=== PATIENT | female | born 1945 | race Caucasian/White ===

== ENCOUNTER → 2016-11-13 | Outpatient (CLI) | payer MEDICARE, OTHER ==
[~2016-11-13] MED LIST: AMLO5TAB2 PO; ASPI81TA85 PO; ATOR1TAB18 PO; GLIP10TA6 PO; JANU100T PO; LIDOCAINE 1% MDV 20ML VIAL As Ordered ONE; LISI40TAB PO; LOPR1TAB7 PO; VITA-122 PO
--- NOTE | 2016-11-13 09:52 | REP ---
PA chest x-ray: Single view. History: The patient is immediately status post CT guided needle biopsy of right perihilar mass. Comparison chest x-ray is from September 26, 2016. Findings: The large cavitary process in the right upper lobe and the associated infiltrate have improved. Mass persists in the right perihilar region. There is no evidence of pneumothorax or hydrothorax. Left lung remains clear. Impression: No complication identified. Signed by Monroe Agee MD 11/13/2016 08:07 P
--- NOTE | 2016-11-13 16:16 | REP ---
CT GUIDED RIGHT UPPER LOBE LUNG BIOPSY: The procedure was performed under the direct supervision of Dr. Agee. The patient has a history of a 6.5 x 5.2 cm necrotizing mass/cavitary lesion in the right upper lobe seen on a previous CAT scan from [facility] performed on 09/27/2016. The risks and benefits of the procedure were explained to the patient and informed consent was obtained. The right upper lobe lung mass was localized using CT guidance. The skin was prepped and draped in a sterile fashion. 1% Lidocaine was used as a local anesthetic. Using CT guidance a 19/20 coaxial needle biopsy system was inserted and advanced into the mass. 4 core biopsy samples were obtained and sent to the lab. The patient tolerated the procedure well and there were no immediate complications. After the appropriate amount of monitored convalescence the patient was discharged from the department. Reviewed by FELIZ Sanches 11/13/2016 04:56 PEdited and Signed by Monroe Agee MD 11/13/2016 05:29 P
== END ==
LOC: M RADPRO 08:33
PROVIDERS: ATTEND Internal Medicine
DX: R91.1 Solitary pulmonary nodule (principal); I10 Essential (primary) hypertension; R01.1 Cardiac murmur, unspecified; J44.9 Chronic obstructive pulmonary disease, unspecified; G47.30 Sleep apnea, unspecified; Z79.84 Long term (current) use of oral hypoglycemic drugs; Z79.899 Other long term (current) drug therapy

== ENCOUNTER → 2016-12-10 | Outpatient (CLI) | payer MEDICARE, OTHER ==
[~2016-12-10] MED LIST changes: -LIDOCAINE 1% MDV 20ML VIAL As Ordered ONE
--- NOTE | 2016-12-10 17:20 | REP ---
MRI BRAIN WITHOUT AND WITH CONTRAST: HISTORY: Lung cancer. CONTRAST: ProHance 16.8 mL. Areas of increased signal intensity on T2 weighted images are present in the periventricular and subcortical white matter and karlos. This represents small vessel ischemic disease. There is no intraparenchymal hemorrhage, infarct, mass, or midline shift. There is no abnormal enhancement. The ventricular system and cortical sulci are dilated consistent with mild volume loss. There is no extracerebral collection. The sinuses are clear. IMPRESSION: 1. Small vessel ischemic disease. 2. Mild volume loss. Signed by Tadeo Alves MD 12/11/2016 08:01 A
== END ==
LOC: M RAD 13:00
PROVIDERS: ATTEND Internal Medicine Medical Oncology
DX: C34.90 Malignant neoplasm of unspecified part of unspecified bronchus or lung (principal)
CPT/HCPCS: 70553; A9576

== ENCOUNTER → 2016-12-11 | Outpatient (CLI) | payer MEDICARE, OTHER ==
--- NOTE | 2016-12-11 20:14 | REP ---
Whole body PET / CT scan for staging of non-small cell lung carcinoma: This the the patient had a right lung mass identified on a chest CT dated 09/18/2060. The patient underwent CT-guided needle biopsy of this mass on November 13, 2016. On the PET/CT scan today scanning is performed from skull base to the upper thighs. Neck and supraclavicular areas: There is focal asymmetric hypermetabolic uptake in the left adenoid with the standard uptake value measuring 4.9. There is bilaterally symmetric artifactual uptake in the arytenoids. There is artifactual uptake in the tongue. Chest: There is multifocal confluent hypermetabolic uptake in the patient's known right lung mass, the standard uptake value maximally measuring 6.8. There are no other hypermetabolic foci in the lung elkins. There is a small focus of hypermetabolic uptake in the posterior mediastinum immediately anterior to the azygos vein. This could be in the esophagus or could bin a para esophageal lymph node. The standard uptake value is 6.1. There are calcified mediastinal and right hilar nodes. There are no other hypermetabolic foci in the chest. Abdomen, pelvis and upper thighs: There is a hypermetabolic focus in the posterior wall of the gastric antrum with the standard uptake value measuring 5.5. This could be artifact from peristalsis or could represent a metastatic focus. There is a hypermetabolic focus in the soft tissues superior to the left hip greater trochanter, nonspecific, trochanteric bursitis versus metastasis. There are no other hypermetabolic foci in the in the abdomen, pelvis or upper thighs. Impression: There is focal hypermetabolic uptake in the left adenoid. The patients known right lung mass demonstrates confluent multifocal hypermetabolic uptake. There is hypermetabolic uptake in the posterior mediastinal node versus uptake in the esophagus. There is hypermetabolic uptake in the posterior wall of the gastric antrum, nonspecific, peristalsis artifact versus metastasis. There is a hypermetabolic focus in the soft tissues superior to the left hip greater trochanter, nonspecific, bursitis versus metastasis. The study is performed with 820 mCi of F 18 FDG Signed by Enrico Reyes MD 12/11/2016 08:06 P
== END ==
LOC: M RAD 09:25
PROVIDERS: ATTEND Internal Medicine Medical Oncology
DX: C34.11 Malignant neoplasm of upper lobe, right bronchus or lung (principal); R93.8 Abnormal findings on diagnostic imaging of other specified body structures
CPT/HCPCS: 78815; A9552

== ENCOUNTER → 2016-12-19 | Outpatient (CLI) | payer MEDICARE, OTHER ==
--- NOTE | 2016-12-23 06:34 | RADONC ---
RADIATION ONCOLOGY CONSULTATION NOTE DATE: 12/19/2016 CHART NUMBER: [id number] DIAGNOSIS: Right lung cancer. STAGE: IIIA, [id number]. ECOG PERFORMANCE: 1 CONSULTATION NOTE: Ms. 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 HISTORY OF PRESENT ILLNESS: The patient was in her usual state of health until screening chest x-ray done 09/18/2016 showed a 5 cm opacity in the right upper lobe. Subsequent CT scan done on 09/18/2016 revealed a large heterogeneous mass in the right upper lobe measuring 4.5 cm with a direct extension into both the chest wall and the hilar area along with associated adenopathy. A biopsy was undertaken on 11/13/2016 and pathology revealed a moderately differentiated adenocarcinoma. A PET CT was done on 12/11/2014 and revealed multifocal hypermetabolic uptake in her known right upper lobe mass. The uptake in the primary site had a SUV value of 6.8. There was also thought to be a lymph node in the paraesophageal area with SUV value of 6.1. There was some hypermetabolic uptake in the wall of the gastric antrum of unknown significance. There is also some hypermetabolic uptake in the soft tissue superior to the left hip, again of unknown significance. There is a question of some left adenoid issue as well. The patient was referred to the ENT surgeons who reviewed the PET scan and decided there is no indication for biopsy and they think this is normal uptake. She is now being referred to us for discussion of external beam radiation therapy. PAST MEDICAL HISTORY: The patient's past medical history is positive for hypertension, diabetes, hyperlipidemia, carpal tunnel syndrome with surgery and a vitamin D deficiency. ALLERGIES: The patient has no known drug allergies. SOCIAL HISTORY: The patient had smoked one pack of cigarettes per day for 50 years. She quit in 2012. She does not abuse alcohol. FAMILY HISTORY: The patient's family history is positive for a sister with ovarian cancer and a brother with leukemia. REVIEW OF SYSTEMS: The patient's review of systems is positive for some foot pain and weakness in her lower legs. It is otherwise noncontributory. Denies nausea, vomiting, fevers, chills, night sweats, diplopia, headaches, anxiety or depression, anorexia, weight loss, visual disturbances, chest pain, urinary or bowel difficulties, bone pain, or neurological problems. PHYSICAL EXAMINATION: The patient is a well-developed, well-nourished, 71-year-old female, in no acute distress. HEENT exam is normocephalic, atraumatic. Extraocular movements are intact. There is no palpable cervical, supraclavicular, infraclavicular, axillary, or inguinal lymphadenopathy present. Lungs are clear to auscultation and percussion. Heart has a regular rate and rhythm. Abdomen is benign with no hepatosplenomegaly, masses, or tenderness. Skeletal examination reveals no tenderness to pressure or percussion of the bony skeleton. Extremities reveal no clubbing, cyanosis, or edema. Neurologic exam is grossly intact, as is the remainder of the physical examination. 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 There is no definitive evidence of metastatic disease and therefore, the patient may be a candidate for external beam radiation. The patient is not oxygen-dependent and does not report getting short of breath walking up stairs. She may therefore be able to handle this treatment. I have ordered pulmonary functions to be undertaken as well as a differential lung scan. In addition, I have set her up for discussion on our multidisciplinary tumor conference on Friday. Pending the results of her breathing capacity and differential lung scan, final recommendations will be made as to whether or not she could tolerate radiation. I have set her up to see me again for re-consultation following the pulmonary functions, differential lung scan and tumor conference. Final recommendations will be made at that time. Thank you for allowing us to participate in the care of this very pleasant woman. If I could be of any further assistance or provide you with any information, please free to contact me anytime. cc: MD Savi Ragland MD
== END ==
LOC: M ONCR 10:10
PROVIDERS: ATTEND Radiology Radiation Oncology
DX: C34.91 Malignant neoplasm of unspecified part of right bronchus or lung (principal)

== ENCOUNTER → 2016-12-20 | Outpatient (CLI) | payer MEDICARE, OTHER ==
--- NOTE | 2016-12-20 10:05 | REP ---
CHEST X-RAY PA AND LATERAL: 12/20/2016. Comparison: 11/13/2016 chest x-ray, CT angiogram 09/18/2016. Clinical history: Lung carcinoma. Findings: Two views show large mass in the right upper lobe abutting the anterior margin of the major fissure extending from the hilum toward the periphery, has at least a 5.8 cm vertical diameter, unchanged. There are no new masses, pleural effusion or infiltrates. The left lung remains clear. The heart is not enlarged. The aorta is calcified at the arch, mildly tortuous but without aneurysm. There are stable calcified mediastinal nodes right paratracheal region. Bony thorax shows no compression deformity or focal lesion. No free air under the diaphragm. Impression: 1. A large right upper lobe mass anterior to the major fissure and extending towards the hilum and periphery of the right upper lobe. No change in size from the October x-ray. No pleural effusion, acute infiltrate or other acute finding. Signed by Dhruv Del Castillo MD 12/20/2016 04:40 P
--- NOTE | 2016-12-20 10:55 | REP ---
VENTILATION-PERFUSION DIFFERENTIAL FUNCTION LUNG SCAN: 12/20/2016. Clinical history: Carcinoma, right upper lobe mass. Dyspnea, prior smoker. Technique: The patient received 1 mCi technetium 99m MAA via an IV for perfusion and 2 mCi technetium nine DTPA aerosol for ventilation. Findings. The anterior and posterior projections for both ventilation and perfusion are provided. Findings: The geometric mean for perfusion is as follows: (% ratios) LEFT RIGHT Upper 12.96 4.04 Middle 32.24 13.14 Lower 16.78 20.84 TOTAL 61.98 38.02 The geometric mean for ventilation is as follows: (% ratio) LEFT RIGHT Upper 19.16 7.33 Middle 34.18 18.09 Lower 9.42 11.82 TOTAL 62.76 37.24 Impression: 1. Perfusion and ventilation confirms poor perfusion and the right upper lobe where the large mass is present. See details above. Signed by Dhruv Del Castillo MD 12/20/2016 10:47 A
== END ==
LOC: M RAD 09:21
PROVIDERS: ATTEND Radiology Radiation Oncology
DX: C34.11 Malignant neoplasm of upper lobe, right bronchus or lung (principal)
CPT/HCPCS: 71020; 78598; A9540; A9567

== ENCOUNTER → 2016-12-23 | Outpatient (CLI) | payer MEDICARE, OTHER | LOC: M CARPUL 12:55 | PROVIDERS: ATTEND Radiology Radiation Oncology | DX: C34.90 Malignant neoplasm of unspecified part of unspecified bronchus or lung (principal) ==

== ENCOUNTER → 2016-12-26 | Outpatient (CLI) | payer MEDICARE, OTHER ==
--- NOTE | 2016-12-30 12:08 | RADONC ---
RADIATION ONCOLOGY FOLLOWUP NOTE DATE: 12/26/2016 CHART NUMBER: [id number]. DIAGNOSIS: Right lung cancer. STAGE: Stage is IIIA, [id number]. ECOG PERFORMANCE STATUS: 1. FOLLOWUP NOTE: Ms. 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 Since I saw her, we have obtained a differential lung scan, which shows the perfusion divided at 62% to the left and 38% to the right. The ventilation shows 63% to the left and 37% to the right. Pulmonary functions were done and show an FEV-1 of 1.66 and a diffusion capacity of 86% of predicted. The patient is presenting today reporting she continues to do well. She has no new complaints. The patient's review of systems is positive for some weakness in her lower legs but is otherwise noncontributory. REVIEW OF SYSTEMS: The patient's review of systems is noncontributory. Denies nausea, vomiting, fevers, chills, night sweats, diplopia, headaches, anxiety or depression, anorexia, weight loss, visual disturbances, chest pain, urinary or bowel difficulties, bone pain, or neurological problems. PHYSICAL EXAMINATION: The patient is a well-developed, well-nourished, 71-year-old female, in no acute distress. HEENT exam is normocephalic, atraumatic. Extraocular movements are intact. There is no palpable cervical, supraclavicular, infraclavicular, axillary, or inguinal lymphadenopathy present. Lungs are clear to auscultation and percussion. Heart has a regular rate and rhythm. Abdomen is benign with no hepatosplenomegaly, masses, or tenderness. Skeletal examination reveals no tenderness to pressure or percussion of the bony skeleton. Extremities reveal no clubbing, cyanosis, or edema. Neurologic exam is grossly intact, as is the remainder of the physical examination. ASSESSMENT: I have spent well over 30 minutes with the patient and her family reviewing the PET scan images as well as discussing her overall pulmonary functions and differential lung scan. At this point with the present studies, it appears that we may be able to treat this woman and she may be able to tolerate the treatment. Again, this is not yet fully defined. I have recommended to her that we continue on to the CT treatment planning process. I explained to them in detail the generation of a dose volume histogram, which then can be put together with the differential lung scan and overall pulmonary functions to calculate out roughly whether or not she can tolerate these treatments. The patient is aware that without radiation this tumor will only progress and indeed she will be in big trouble. The patient is scheduled to return to us next week for initiation of treatment planning. Once again, we await the final overall combination of treatment planning with her pulmonary functions to make final recommendations. cc: MD Savi Ragland MD
== END ==
LOC: M ONCR 14:45
PROVIDERS: ATTEND Radiology Radiation Oncology
DX: C34.90 Malignant neoplasm of unspecified part of unspecified bronchus or lung (principal)

== ENCOUNTER → 2016-12-27 | Outpatient (REF) | payer MEDICARE, OTHER | LOC: M LAB REF 09:00 | PROVIDERS: ATTEND Pathology Anatomic Pathology & Clinical Pathology | DX: C34.90 Malignant neoplasm of unspecified part of unspecified bronchus or lung (principal) ==

== ENCOUNTER 2016-12-31 08:30 | Outpatient (RCR) | payer MEDICARE, OTHER | END 2017-01-24 | LOC: M ONCR 08:30 | PROVIDERS: ATTEND Radiology Radiation Oncology | DX: C34.11 Malignant neoplasm of upper lobe, right bronchus or lung (principal) ==

== ENCOUNTER → 2016-12-31 | Outpatient (CLI) | payer MEDICARE, OTHER | LOC: M RAD 08:26 | PROVIDERS: ATTEND Radiology Radiation Oncology | DX: C34.90 Malignant neoplasm of unspecified part of unspecified bronchus or lung (principal) ==

== ENCOUNTER → 2017-01-16 | Outpatient (CLI) | payer MEDICARE, OTHER ==
[2017-01-16 11:48] LABS: INR 1.09
== END ==
LOC: M LAB 11:04
PROVIDERS: ATTEND Internal Medicine
DX: C34.90 Malignant neoplasm of unspecified part of unspecified bronchus or lung (principal); Z79.899 Other long term (current) drug therapy

== ENCOUNTER → 2017-01-16 | Outpatient (CLI) | payer MEDICARE, OTHER ==
[~2017-01-16] MED LIST changes: +LIDOCAINE 2% MDV 20 ML VIAL As Ordered ONE; +LIDOCAINE W/EPINEPHRINE 1% 20ML VIAL As Ordered ONE; +SODIUM BICARBONATE 8.4% INJ 50MEQ 50 ML VIAL As Ordered ONE; +ceFAZolin 1GM INJ (J0690) As Ordered ONE; +fentaNYL 100 MCG/2 ML INJECTION (J3010) As Ordered ONE
--- NOTE | 2017-01-22 14:31 | REPKIM ---
CLINICAL HISTORY: Lung ca. The referring service has asked a chest infuse-a- port placement for chemotherapy. PROCEDURE PERFORMED: Placement of totally implantable venous access device under combined sonographic and fluoroscopic guidance INTERVENTIONALIST: Raquel Solo MD CONSENT: The risks, benefits and alternatives to the procedure were explained to the patient and informed written consent was obtained. MEDICATIONS: Local Lidocaine, Ancef 1gm IV and Fentanyl 50 mcg IV. Independent trained observer was present during the entire duration of the procedure for monitoring. EBL: 5 mL FLUORO TIME: 0.3 minutes DEVICE USED: [place] Port 8-[place], Single-Lumen Lot#[id number] PROCEDURE/FINDINGS: The patient was brought to the interventional radiology suite and was positioned supine on the table. Time out procedure was performed. Real time ultrasound was used and permanent image stored. The right IJ vein is patent and compressible. Using ultrasound guidance the internal jugular vein was accessed with a micropuncture needle, after infiltration of the skin and deep tissues with local anesthetic. A peel-away sheath was placed. The catheter tip was inserted via the sheath under controlled respiration. The sheath was removed, and the catheter was flushed with heparinized saline and clamped. Next attention was turned to creation of a subcutaneous pocket for the port along the upper chest. The overlying skin and deep tissues were infiltrated with local anesthetic. A transverse skin incision was made long enough to accommodate the reservoir, and using blunt dissection a subcutaneous pocket was created. A tunnel was created from the pocket to the access site. A clamp was advanced from the pocket incision to the venous access site and used to grasp the free end of the catheter and pull it through to the pocket incision. The catheter was trimmed, attached to the reservoir, and flushed with heparinized saline. The reservoir was inserted into the pocket and secured with 2-0 absorbable sutures. The deep tissue was closed with interrupted 2-0 Vicryl suture. The skin incision was closed with a running subcuticular suture of 4-0 Vicryl. The venotomy incision was closed with 4-0 Vicryl suture. Mastisol and Steri-Strips were applied. The port was then accessed and Heparin (100 units/mL concentration) locked in the port. A sterile dressing was then applied. Post procedure chest spot film radiograph showed the tip of the catheter is at the cavoatrial junction. The patient tolerated the procedure well with no immediate complications. This procedure was performed using ultrasound and fluoroscopy. Dr. Solo was present. IMPRESSION: 1. The right IJ vein is patent and compressible. 2. Successful placement of right IJ chest port placement as discussed above. The chest [id number] is ready for use. cc: Ramona Buck MD [facility]
== END | disposition home or self-care (01) ==
LOC: M IRPRO 11:17
PROVIDERS: ATTEND Internal Medicine Medical Oncology
DX: C34.90 Malignant neoplasm of unspecified part of unspecified bronchus or lung (principal); Z79.899 Other long term (current) drug therapy
CPT/HCPCS: 36415; 36561; 76937; 77001; 85610; C1788; C1894; J0690; J3010

== ENCOUNTER 2017-01-27 08:54 | Outpatient (RCR) | payer MEDICARE, OTHER ==
[~2017-01-27 08:54] MED LIST changes: -LIDOCAINE 2% MDV 20 ML VIAL As Ordered ONE; -LIDOCAINE W/EPINEPHRINE 1% 20ML VIAL As Ordered ONE; -SODIUM BICARBONATE 8.4% INJ 50MEQ 50 ML VIAL As Ordered ONE; -ceFAZolin 1GM INJ (J0690) As Ordered ONE; -fentaNYL 100 MCG/2 ML INJECTION (J3010) As Ordered ONE
--- NOTE | 2017-01-28 08:16 | RADONC ---
RADIATION ONCOLOGY PROGRESS NOTE DATE: 01/27/2017 CHART NUMBER: [id number] Ms. Singh is presently at a dose of 900 cGy to her right lung and is tolerating her treatments quite well with no significant difficulties at this time related to her radiation therapy. She is having no increased shortness of breath or difficulty swallowing. The patient is complaining of nauseousness since receiving her chemotherapy. She has been given antiemetics by her medical oncologist, but they are not working. She also has a skin irritation where she removed a patch. Other than that she has no complaints at this time related to her radiation therapy or disease. She denies vomiting, fevers, chills, night sweats, diplopia, headaches, anxiety or depression, anorexia, weight loss, visual disturbances, chest pain, urinary or bowel difficulties, bone pain, or neurological problems. PHYSICAL EXAMINATION: The patient's skin is in good condition with no evidence of radiation change present. There is no moist or dry desquamation. The remainder of physical exam remains unchanged. Ms. Singh is tolerating treatments quite well and radiation will continue as scheduled. I have encouraged her to contact her medical oncologist for possible changing of her antiemetics. I have also given her dietary instructions. In the meantime radiation will continue as scheduled.
--- NOTE | 2017-02-03 14:45 | RADONC ---
RADIATION ONCOLOGY PROGRESS NOTE DATE: 02/03/2017 CHART NUMBER: [id number]. Ms. Singh is presently at a dose of 1800 cGy to her right lung and mediastinum and is tolerating treatments quite well at this point with no significant difficulties related to her radiation therapy. She is having no increased shortness of breath or difficulty swallowing. REVIEW OF SYSTEMS: The patient's review of systems is noncontributory. She denies nausea, vomiting, fevers, chills, night sweats, diplopia, headaches, anxiety or depression, anorexia, weight loss, visual disturbances, chest pain, urinary or bowel difficulties, bone pain, or neurological problems. PHYSICAL EXAMINATION: The patient's skin is in good condition with no evidence of moist or dry desquamation. The remainder of her physical exam remains unchanged. Ms. Singh is tolerating her treatments quite well and radiation will continue as scheduled.
--- NOTE | 2017-02-10 08:57 | RADONC ---
RADIATION ONCOLOGY PROGRESS NOTE DATE: 02/10/2017 Ms. Singh is presently at a dose of 2700 cGy to her right lung and mediastinum and is tolerating treatments fairly well with no significant difficulties related to her radiation therapy other than some mild esophagitis which she said began about 2 days ago. REVIEW OF SYSTEMS: The patient's review of systems is positive for esophagitis but is otherwise noncontributory. Denies nausea, vomiting, fevers, chills, night sweats, diplopia, headaches, anxiety or depression, anorexia, weight loss, visual disturbances, chest pain, urinary or bowel difficulties, bone pain, or neurological problems. PHYSICAL EXAMINATION: The patient's physical exam is remarkable for a 3-1/2 pound weight loss over the past week. It is otherwise negative. Her skin is in good condition with no evidence of moist or dry desquamation. The remainder of her physical exam remains unchanged. Ms. Singh is tolerating her treatments quite well and radiation will continue as scheduled. We will continue to follow her for her esophagitis.
[2017-02-17] MEDS ORDERED: PERC5TAB6 PO (09:03)
--- NOTE | 2017-02-17 09:47 | RADONC ---
RADIATION ONCOLOGY PROGRESS NOTE DATE: 02/17/2017 CHART NUMBER: [id number]. Ms. Singh is presently at a dose of 3600 cGy to her mediastinum and lung. The patient reports that she is having marked esophagitis and difficulty swallowing. She is continuing with some fluids, but not just sipping water throughout the day. She reports that she is trying to take some Ensure Boost. REVIEW OF SYSTEMS: The patient's review of systems is positive for painful swallowing as well as weakness, but is otherwise noncontributory. She denies nausea, vomiting, fevers, chills, night sweats, diplopia, headaches, anxiety or depression, anorexia, weight loss, visual disturbances, chest pain, urinary or bowel difficulties, bone pain, or neurological problems. PHYSICAL EXAMINATION: The patient's weight today is 170.4 pounds. That is down 6.2 pounds in the past week. Her weight at time of consultation was 84 pounds which was 12/17/2016. The patient's skin is in good condition with no evidence of moist or dry desquamation. The remainder of her physical exam remains unchanged. Ms. Singh is having difficulty swallowing and has lost a significant amount of weight over the past week. I have therefore put her on rest at least until , but probably for the rest of the week. She had given triple mix which includes Benadryl, viscous Xylocaine and Maalox last week. She is continuing to progress with her esophagitis, however. I have now given her prescription for Percocet 5 mg in 325 of acetaminophen. In addition, I am giving her IV fluids 1 liter of normal saline today since I believe dehydration is contributing to her weight loss. She has been instructed to come back tomorrow if she is not drinking enough and we can give her IV fluids throughout the week as indicated. Once again, we will continue to follow this patient closely. She has been given a triple mix mouth wash as well as Percocet and IV fluids. She will remain on rest until her condition improves.
[2017-02-20] MEDS ORDERED: ZOFR4TAB3 PO (16:30)
[2017-02-20] MEDS ORDERED: SUCR1SS PO (16:30)
== END 2017-02-23 ==
LOC: M ONCR 08:54
PROVIDERS: ATTEND Radiology Radiation Oncology
DX: C34.11 Malignant neoplasm of upper lobe, right bronchus or lung (principal)

== ENCOUNTER 2017-02-20 12:30 | Emergency (ER) | payer MEDICARE, OTHER ==
[~2017-02-20] VITALS: Ht 165.1 cm; Wt 73.9 kg
[~2017-02-20 12:30] MED LIST changes: +PERC5TAB6 PO
[2017-02-20] MEDS ORDERED: NS 1,000 ML IV ONE (13:15)
[2017-02-20] MEDS ORDERED: ONDANSETRON 4MG/2ML VIAL (J2405) IV ONE (13:15)
[2017-02-20] MEDS ORDERED: GI COCKTAIL 50ML BTL(HYOSCYAMINE/MAALOX/LIDOCAINE VISCOUS)(1:3:1) PO ONE (13:15)
[2017-02-20 13:52] LABS: BASO % 0.2 % (0.0-1.0); LARGE UNSTAINED CELL % 7.1 % (0.0-4.0); LYMPH # 0.1 K/mm3 (1.5-4.5); LYMPH % 19.3 % (24.0-44.0); MEAN CORPUSCULAR HEMOGLOBIN 30.3 pg (27.0-33.0); MEAN CORPUSCULAR HGB CONC 34.5 g/dl (32.0-36.5); MEAN CORPUSCULAR VOLUME 87.9 fl (80.0-96.0); MONO # 0.1 K/mm3 (0.0-0.8); MONO % 18.7 % (0.0-5.0); NEUTROPHILS # 0.3 K/mm3 (1.8-7.7); NEUTROPHILS % 46.6 % (36.0-66.0); RED CELL DISTRIBUTION WIDTH 15.1 % (11.5-14.5)
[2017-02-20 13:56] LABS: WHITE BLOOD COUNT 0.6 K/mm3 (4.0-10.0)
[2017-02-20 13:57] LABS: PLATELET COUNT, AUTOMATED 71 k/mm3 (150-450)
[2017-02-20 14:13] LABS: CALCIUM LEVEL 8.8 MG/DL (8.8-10.2); CREATININE FOR GFR 1.24 MG/DL (0.55-1.02); POTASSIUM SERUM 4.5 MEQ/L (3.5-5.1)
--- NOTE | 2017-02-20 14:51 | ED PDOC ---
Post-Departure Follow-Up PT STATES FELT IMPROVED WITH GI COCKTAIL. WAS GIVEN A DRINK AND TOOK 2 SIPS AND STATES, "TOO MUCH PAIN IN MY THROAT WHEN I SWALLOW." STATES SWALLOWING DOES NOT INCREASE NAUSEA, ONLY PAIN. ADVISED CAN PERFORM CT OF THE NECK TO EVALUATE IF THERE IS AN OBVIOUS NARROWING OF THE ESOPHAGUS IN THE AREA OF THE THROAT CAUSING HER PAIN. PT AND DAUGHTER IN AGREEMENT OF THIS STUDY AT THIS TIME. PT RESTING COMFORTABLY. BENITA RASCON PA-C Feb 20, 2017 14:51
[2017-02-20] MEDS ORDERED: ISOVUE-370 76% 100ML VIAL (Q9967) As Ordered ONE (15:23)
[2017-02-20] MEDS ORDERED: SUCR1SS PO (16:30)
[2017-02-20] MEDS ORDERED: ZOFR4TAB3 PO (16:30)
[2017-02-20 16:45] VITALS: BP 148/70
--- NOTE | 2017-02-20 21:54 | REP ---
CT NECK WITH CONTRAST: HISTORY: Dysphagia. CONTRAST: Isovue-370, 75 mL Calcifications are present in the tonsils. This is secondary to previous inflammatory disease. The naso-, luli- and hypopharynx, larynx and subglottic trachea are otherwise normal in appearance. The salivary glands are normal. A 6 mm hypodensity is present in the right thyroid lobe. This most likely represents a cyst. The left thyroid lobe is normal. Small lymph nodes less than 1 cm in size are present in the internal jugular chains, posterior triangles, submandibular and submental areas. Atherosclerotic calcification is present at the carotid bifurcations. Degenerative change is present in the cervical spine. Scarring is present in the lung apices. A large mass is present in the right upper lobe. The visualized sinuses are clear. IMPRESSION: 1. There is no neck mass or adenopathy. 2. There is a 6 mm hypodensity in the right thyroid lobe. This most likely represents a cyst. Ultrasound may be helpful for further evaluation. 3. Right upper lobe lung mass. Signed by Tadeo Alves MD 02/21/2017 07:50 A
--- NOTE | 2017-02-24 17:00 | ED PDOC ---
Post-Departure Follow-Up radiology report faxed to Antonella Baez MD February 24, 2017 16:59
== END 2017-02-20 16:45 | disposition home or self-care (01) ==
LOC: M ED 13:35
DX: R11.2 Nausea with vomiting, unspecified (principal); R13.10 Dysphagia, unspecified; E11.9 Type 2 diabetes mellitus without complications; I10 Essential (primary) hypertension; Z87.440 Personal history of urinary (tract) infections; R01.1 Cardiac murmur, unspecified; Z85.118 Personal history of other malignant neoplasm of bronchus and lung; Z87.891 Personal history of nicotine dependence; Z79.899 Other long term (current) drug therapy; Z79.82 Long term (current) use of aspirin
CPT/HCPCS: 36415; 70491; 80048; 81001; 85025; 87088; 87186; 87880; 96374; 99283; J2405; Q9967

== ENCOUNTER → 2017-02-21 | Outpatient (CLI) | payer MEDICARE, OTHER ==
[~2017-02-21] MED LIST changes: +SUCR1SS PO; +ZOFR4TAB3 PO
== END ==
LOC: M ONCR 13:39
PROVIDERS: ATTEND Radiology Radiation Oncology
DX: C34.90 Malignant neoplasm of unspecified part of unspecified bronchus or lung (principal); E86.0 Dehydration

== ENCOUNTER 2017-02-24 11:38 | Outpatient (RCR) | payer MEDICARE, OTHER ==
--- NOTE | 2017-02-25 10:33 | RADONC ---
RADIATION ONCOLOGY PROGRESS NOTE: DATE OF SERVICE: 02/24/2017 CHART NO: 17-030 Ms. Singh is thus far still at a dose of 3600 cGy to her mediastinum was last treated on 02/17/2017. The patient continues to have a low blood count and a CBC done yesterday reveals a platelet count of only 22,000. The patient also reports that she is unable to swallow. She therefore remains on rest at this time. The patient came in today requesting IV fluids. And we gave her a liter of normal saline. Until the patient is able to swallow without difficulty and her platelets rise, she will remain on rest at this point. I have asked her to come in tomorrow for more fluids if she feels up to it, otherwise will be seeing her on Friday for re-evaluation as well. [facility]
--- NOTE | 2017-03-03 11:25 | RADONC ---
RADIATION ONCOLOGY PROGRESS NOTE DATE: 03/03/2017 CHART NUMBER: [id number] Ms. Singh is presently at a dose of 3780 cGy along the mediastinum. The patient has been on rest since February 17 secondary to esophagitis and low platelet count. The patient has resumed radiation today. Today, the patient says she is able to swallow without difficulty. She has been gaining weight. She is having no further discomfort. Her chemo is scheduled to start tomorrow. REVIEW OF SYSTEMS: The patient's review of systems is noncontributory. Denies nausea, vomiting, fevers, chills, night sweats, diplopia, headaches, anxiety or depression, anorexia, weight loss, visual disturbances, chest pain, urinary or bowel difficulties, bone pain, or neurological problems. PHYSICAL EXAMINATION The patient's skin is in good condition with no evidence of moist or dry desquamation. The remainder of physical exam remains unchanged. Ms. Singh is recovered and is now reinitiating radiation. She will continue treatments as planned.
--- NOTE | 2017-03-10 10:06 | RADONC ---
RADIATION ONCOLOGY PROGRESSION NOTE: DATE: 03/10/2017 CHART NO: 17-030 Ms. Singh is presently at a dose of 4680 cGy to her right lung and mediastinum and is tolerating treatments quite well at this point with no significant difficulties related to her radiation therapy. Unfortunately, the patient is not taking any Boost or Ensure and she does not like the taste. She is not eating ice cream. She is losing weight, once again. The patient's review of systems is positive for anorexia, weight loss but is otherwise noncontributory. She denies nausea, vomiting, fevers, chills, night sweats, diplopia, headaches, anxiety or depression, anorexia, weight loss, visual disturbances, chest pain, urinary or bowel difficulties, bone pain, or neurological problems. PHYSICAL EXAMINATION: The patient's weight today is 166.6 pounds. This is down 3.2 pounds in the past week. The patient's skin is in good condition with no evidence of radiation change present and the remainder of the physical exam remains unchanged. The patient is continuing with her radiation as scheduled. I discussed with the patient and her daughter the need for a nutritional maintenance. RT will continue as scheduled. MTDD
[2017-03-11] MEDS ORDERED: METO-209 PO (11:59)
[2017-03-11] MEDS ORDERED: FOLI400T PO (12:00)
--- NOTE | 2017-03-12 09:24 | RADONC ---
RADIATION ONCOLOGY PROGRESS NOTE DATE: 03/11/2017 CHART NUMBER: [id number] Ms. Singh underwent another fraction of radiation today bringing her total thus far to 4860 cGy. The patient was quite shaky today and weak. She was unstable in gait. We took the patient to the exam room and found her to have a pulse of 178. Her blood pressure was 96/54. Her weight was recorded at 159.6. This is definitely a weight loss of 10 pounds in the past week. It appears however to be a weight loss of 7 pounds since yesterday. I find this difficult to believe, however, she does appear quite dehydrated. I obtained a urine sample and culture and sensitivity. We brought her directly to the emergency room where she was evaluated and given fluids. She has been admitted. Her urinalysis and culture are being evaluated. She will be on rest for the remainder of this week.
[2017-03-13] MEDS ORDERED: CEFD1CAP8 PO (14:11)
== END 2017-03-26 ==
LOC: M ONCR 11:38
PROVIDERS: ATTEND Radiology Radiation Oncology
DX: C34.11 Malignant neoplasm of upper lobe, right bronchus or lung (principal)

== ENCOUNTER 2017-03-11 09:12 | Inpatient (IN) | payer MEDICARE, OTHER ==
[~2017-03-11] VITALS: Ht 165.1 cm; Wt 96.5 kg
[~2017-03-11 09:12] MED LIST changes: -CEFD1CAP8 PO; -FOLI400T PO; -METO-209 PO
[2017-03-11] MEDS ORDERED: NS 1,000 ML IV ONE ×2 (09:30→10:45)
[2017-03-11 09:57] LABS: WHITE BLOOD COUNT 1.4 K/mm3 (4.0-10.0)
[2017-03-11 09:58] LABS: DIFF SLIDE NUMBER 196; MEAN CORPUSCULAR HEMOGLOBIN 30.8 pg (27.0-33.0); MEAN CORPUSCULAR HGB CONC 32.8 g/dl (32.0-36.5); PLATELET COUNT, AUTOMATED 104 k/mm3 (150-450); RED CELL DISTRIBUTION WIDTH 18.7 % (11.5-14.5)
--- NOTE | 2017-03-11 10:04 | REP ---
Clinical: Cough. Dyspnea. Comparison: 12/20/2016. Findings: A vague ill-defined area of opacity extending from the right perihilar region into the right upper lung zone is similar to prior examination. The bilateral lung elkins are otherwise well aerated and clear. No effusion. No pneumothorax. Mediastinum and cardiac silhouette are stable. [id number] with tip in the SVC. Atherosclerotic changes to the thoracic aorta noted. Skeletal structures intact. Impression: A vague opacity in the right mid/upper lung zone essentially unchanged. No new acute process identified. Signed by Harvey Cardozo MD 03/11/2017 09:56 A
[2017-03-11 10:25] LABS: ALBUMIN 3.7 GM/DL (3.2-5.2); ALBUMIN/GLOBULIN RATIO 0.93 (1.00-1.93); BILIRUBIN,DIRECT 0.4 MG/DL (0.0-0.2); BILIRUBIN,TOTAL 1.8 MG/DL (0.2-1.0); CALCIUM LEVEL 8.8 MG/DL (8.8-10.2); CREATININE FOR GFR 1.39 MG/DL (0.55-1.02); EOSINOPHILS 1 % (0-5); GLOMERULAR FILTRATION RATE 39.5 (>39); POTASSIUM SERUM 3.9 MEQ/L (3.5-5.1); THYROXINE (T4) 13.9 UG/DL (4.5-12.0); TOTAL PROTEIN 7.7 GM/DL (6.4-8.2)
[2017-03-11 10:26] LABS: ANISOCYTOSIS 2+
--- NOTE | 2017-03-11 10:44 | ECGEPIP ---
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
[2017-03-11] MEDS ORDERED: NS 200 ML IV ONE (10:45)
[2017-03-11] MEDS ORDERED: METO-209 PO (11:59)
[2017-03-11] MEDS ORDERED: FOLI400T PO (12:00)
[2017-03-11] MEDS ORDERED: ONDANSETRON 4MG/2ML VIAL (J2405) IV PRN (12:45)
--- NOTE | 2017-03-11 13:26 | HPE ---
DATE OF ADMISSION: 03/11/2017 PRIMARY CARE PROVIDER: Savi Padilla MD ONCOLOGIST: Dr. Haque RADIATION ONCOLOGIST: Dr. Lyn CHIEF COMPLAINT: Weakness and fast heart rate. HISTORY OF PRESENT ILLNESS: The patient is a 72-year-old female with lung cancer who currently completed day #27 of #36 of radiation therapy this morning and completed her most recent chemotherapy on 03/04/2017 and is due for one more round of chemotherapy on 03/26/[address] Haque. She had been reportedly losing weight and having poor by mouth intake related to dysphagia and nausea and vomiting, but she was seen by Riki today and reportedly had a heart rate in the 160s. She did receive radiation treatment and was referred to the emergency room (ER), where she was once again noted to be in the 140s, afebrile. She was started on intravenous (IV) fluids, and her heart rate did quickly improve. She complains of an intermittent cough for the last several weeks but with no acute changes. She tells me that she completed a course of 5 days of Levaquin for a urinary tract infection (UTI), taking her last dose 9 days ago. She otherwise at the present time tells me that she is feeling significantly better than when she presented to the emergency room and that she has not been able to tolerate anything by mouth for several days to a week. PAST MEDICAL HISTORY: Hypertension. Dyslipidemia. Diabetes. Lung cancer. HOME MEDICATIONS: - aspirin 81 mg nightly - metoprolol succinate 100 mg by mouth nightly - The patient reportedly recently stopped her lisinopril, Lipitor, Norvasc while she is receiving chemotherapy. She has not required these medications ALLERGIES: No known drug allergies. SOCIAL HISTORY: She is a former smoker. Quit 44 years ago but had a previous [id number] history. She lives with a daughter. FAMILY HISTORY: Noncontributory. REVIEW OF SYSTEMS: Negative other than in history of present illness (HPI). PHYSICAL EXAMINATION: Maximum temperature (Tmax) 97.5, pulse 108, respiratory rate 16, blood pressure (BP) 106/55, oxygen (O2) saturation 97% on room air. In general, she is a frail elderly female, laying flat in bed. She does not appear to be in any acute distress. She is accompanied by her daughter. HEENT: She has dry mucous membranes. Cranial nerves II-XII are grossly intact. She has poor dentition. No elevation in central venous pressure (CVP). CARDIOVASCULAR EXAMINATION: S1, S2. Tachycardic with an old murmur. RESPIRATORY EXAMINATION: Is fairly clear. ABDOMINAL EXAMINATION: Bowel sounds are present. The abdomen is soft. EXTREMITIES: No clubbing, cyanosis, or edema. She appears mildly wasted. LABORATORY STUDIES: WBC 1.4, hemoglobin 10.8, hematocrit 33, platelet count 104. Chemistry panel: Sodium 138, potassium 3.9, chloride 100, bicarbonate 26, BUN 35, creatinine 1.3, lactic acid 4.5, fasting glucose 263, total bilirubin (T Bili) elevated at 1.8, alkaline phosphatase 141, a TSH is 1.0. One set of cardiac enzymes is negative. Influenza swab was negative. Blood cultures were drawn and pending. IMAGING: The patient did have a chest x-ray that revealed a vague opacity in the right middle and upper lung lobes, essentially unchanged. No new acute processes identified. ASSESSMENT AND PLAN: This is a 72-year-old female presenting with weakness and tachycardia, likely related to dehydration. PROBLEMS: 1. Weakness and tachycardia. The patient has had poor by mouth intake, and she is clinically dehydrated. She is improving with IV fluids. I will admit her to the medical-surgical floor and continue with normal saline at 100 mL an hour. I think that her heart rate will continue to improve, and she will continue to feel better. She already is with the fluid resuscitation. In regard to her difficulty with by mouth, she tells me that it is related to radiation treatments to the area of her esophagus. I will place a formal nutritional assessment and consult, as well as speech therapy for a swallow evaluation, and for the time being place her on pureed nectar-thickened liquid diet. I will discuss further with Dr. Lyn at this time. Because if the patient is unable to tolerate by mouth, her nutritional status will decline and her prognosis worsens. 2. Acute kidney injury. Her BUN is elevated at 35, and her creatinine is slightly elevated at 1.3. Will continue to monitor while on IV fluid. 3. Elevated lactic acid. Once again, likely related to dehydration. Will trend this and continue to follow closely. 4. Pancytopenia related to chemotherapy. She is not absolutely neutropenic at this time. Will continue to monitor. I expect a dilutional drop with all of her IV fluids. If her platelets drop below 100, will withhold any pharmacological deep venous thrombosis (DVT) prophylaxis. 5. Hypertension. Will continue the patient on metoprolol with holding parameters. However, at this time, it does not appear as though she needs it. 6. Type 2 diabetes. The patient's nutritional status is acutely declining, and she is rapidly losing weight. I will place her on a nectar-thickened diet in an effort for her to receive as much nutrition as she possibly can. 7. Lung cancer. Will discuss further with Dr. Lyn if she should continue her radiation treatments at this time, as she is quite weak. 8. Deep venous thrombosis (DVT) prophylaxis. The patient will be on heparin. DISPOSITION: The patient is admitted to the medical-surgical floor. Should she become febrile, will consider broad-spectrum antibiotic coverage. For the time being, will monitor her closely and also order physical therapy and occupational therapy. TIFF
[2017-03-11 15:10] VITALS: BP 142/78
[2017-03-11] MEDS: PANTOPRAZOLE 40MG INJ (PROTONIX) (C9113) IV SCH (15:29)
[2017-03-11] MEDS: cefTRIAXone SOD 1 GM in D5W MINI-BAG PLUS 50 ML IV SCH (15:29)
[2017-03-11] MEDS: HEPARIN SOD (PORCINE) 5000 UNITS/ML VIAL SC SCH (18:16)
[2017-03-11] MEDS: NS 1,000 ML IV SCH ×2 (18:16→21:57)
[2017-03-11 20:12] VITALS: BP 102/50
[2017-03-11] MEDS: METOPROLOL SUCC (TopROL XL) 100MG *XL* TAB PO SCH (20:15)
[2017-03-11] MEDS ORDERED: ASPIRIN 81 MG ENTERIC TAB PO SCH (21:00)
[2017-03-11 22:00] VITALS: BP 105/59
[2017-03-12] MEDS: HEPARIN SOD (PORCINE) 5000 UNITS/ML VIAL SC SCH (05:47)
[2017-03-12 06:00] VITALS: BP 118/53
[2017-03-12 06:13] LABS: ANION GAP 6 MEQ/L (8-16); BLOOD UREA NITROGEN 20 MG/DL (7-18); CALCIUM LEVEL 8.2 MG/DL (8.8-10.2); CARBON DIOXIDE LEVEL 28 MEQ/L (21-32); CHLORIDE LEVEL 109 MEQ/L (98-107); CREATININE FOR GFR 0.81 MG/DL (0.55-1.02); GLOMERULAR FILTRATION RATE > 60.0 (>39); GLUCOSE, FASTING 154 MG/DL (83-110); SODIUM LEVEL 143 MEQ/L (136-145)
[2017-03-12 06:28] LABS: MEAN CORPUSCULAR HEMOGLOBIN 31.1 pg (27.0-33.0); MEAN CORPUSCULAR HGB CONC 33.4 g/dl (32.0-36.5); MEAN CORPUSCULAR VOLUME 92.9 fl (80.0-96.0); RED CELL DISTRIBUTION WIDTH 18.9 % (11.5-14.5)
[2017-03-12] MEDS: PANTOPRAZOLE 40MG INJ (PROTONIX) (C9113) IV SCH (08:08)
[2017-03-12] MEDS: NS 1,000 ML IV SCH (08:08)
[2017-03-12 14:00] VITALS: BP 103/58
[2017-03-12] MEDS: cefTRIAXone SOD 1 GM in D5W MINI-BAG PLUS 50 ML IV SCH (14:10)
--- NOTE | 2017-03-12 14:16 | IPN ---
DATE: 03/12/2017 SUBJECTIVE: The patient tells me that she is feeling a little bit better today. She tells me that she is tolerating p.o. She denies chest pain, shortness of breath, fevers, chills, or lightheadedness. OBJECTIVE: VITAL SIGNS: Temperature 97.6, pulse 101, respiratory rate 20, blood pressure 118/53. Oxygen saturation 96% on room air. GENERAL: She is a very pleasant, frail, elderly female sitting up in bed eating breakfast. She does not appear to be in any acute distress. HEENT: She has a dysconjugate gaze. Moist mucous membranes. No elevation of CVP. CARDIOVASCULAR EXAM: S1 and S2 regular. RESPIRATORY EXAM: Clear. ABDOMINAL EXAM: Benign. It is obese. EXTREMITIES: No clubbing, cyanosis, or edema. LABORATORY STUDIES: Today, WBC 1.0, hemoglobin 7.7, hematocrit 22.9, platelet count 65. Dilutional drop in all cell lines. Chemistry panel: Sodium 143, potassium 4.0, chloride 109, bicarb 28, BUN 20, creatinine 0.8, lactic acid 1.7 after a 4 hour followup from 4.5 yesterday. Urinalysis is mildly positive with 11 WBCs, but no leukocyte esterase and 3+ bacteria. Microbiology: Urine culture is pending. Blood cultures are negative after 24 hours. Influenza swab was negative. Respiratory panel is also negative. No new imaging. ASSESSMENT/PLAN: This is a 72-year-old female with weakness. PROBLEMS: 1. Weakness. Likely multifactorial in nature secondary to dehydration, symptomatic anemia, and poor p.o. intake related to her radiation esophagitis. After talking to Dr. Lyn, we will give the patient six days of rest before her next radiation treatment. She tells me that she is already feeling as though she is able to tolerate better p.o. She has been adequately hydrated. I have consented her for 2 units of packed red blood cells for transfusion. Her pancytopenia is secondary to active chemotherapy. 2. Acute kidney injury. Improved with IV hydration. Will discontinue IV fluids and provide her with 2 units of packed red blood cells. 3. Elevated lactic acid secondary to dehydration. Resolved. 4. Hypertension. The patient is on metoprolol with holding parameters. 5. Type 2 diabetes. Diet controlled. 6. Lung cancer. She is currently on rest from radiation therapy. She will require outpatient followup with Dr. Haque and Dr. Lyn. 7. Deep vein thrombosis (DVT) prophylaxis. The patient is on heparin. DISPOSITION: Pending the patient's ability to tolerate p.o., improvement in her heart and symptoms, and physical therapy and occupational therapy evaluations, she may be able to be discharged as early as tomorrow.
[2017-03-12 20:10] VITALS: BP 132/84
[2017-03-12] MEDS: METOPROLOL SUCC (TopROL XL) 100MG *XL* TAB PO SCH (20:10)
[2017-03-12 20:12] VITALS: BP 132/84
[2017-03-13 06:00] VITALS: BP 126/59
[2017-03-13 06:07] LABS: MEAN CORPUSCULAR HGB CONC 35.1 g/dl (32.0-36.5); MEAN CORPUSCULAR VOLUME 88.3 fl (80.0-96.0); RED CELL DISTRIBUTION WIDTH 17.7 % (11.5-14.5); WHITE BLOOD COUNT 1.6 K/mm3 (4.0-10.0)
[2017-03-13 06:11] LABS: ANION GAP 6 MEQ/L (8-16); BLOOD UREA NITROGEN 11 MG/DL (7-18); CALCIUM LEVEL 8.3 MG/DL (8.8-10.2); CARBON DIOXIDE LEVEL 30 MEQ/L (21-32); CHLORIDE LEVEL 106 MEQ/L (98-107); CREATININE FOR GFR 0.75 MG/DL (0.55-1.02); GLOMERULAR FILTRATION RATE > 60.0 (>39); GLUCOSE, FASTING 126 MG/DL (83-110); POTASSIUM SERUM 3.5 MEQ/L (3.5-5.1); SODIUM LEVEL 142 MEQ/L (136-145)
[2017-03-13] MEDS: PANTOPRAZOLE 40MG INJ (PROTONIX) (C9113) IV SCH (10:04)
[2017-03-13] MEDS ORDERED: CEFD1CAP8 PO (14:11)
--- NOTE | 2017-03-13 21:59 | DSES ---
DATE OF ADMISSION: 03/11/2017 DATE OF DISCHARGE: 03/13/2017 DISCHARGE DIAGNOSIS: Symptomatic anemia. SECONDARY DIAGNOSIS: Dehydration. Acute kidney injury. Lactic acidosis. Hypertension. Type 2 diabetes. Lung cancer. HOSPITAL COURSE: The patient is a 72-year-old female with known lung cancer, currently undergoing chemotherapy and radiation therapy, who presented from radiation therapy tachycardic and weak. She was found to be significantly dehydrated and symptomatic anemia. She did receive several liters of normal saline and two units of packed red blood cells with a good improvement in her symptoms. The case was discussed with Dr. Lyn who suggested giving the patient some rest from radiation. She had not been eating well and lost considerable weight prior to her presentation. During her stay in the hospital, she was tolerating a regular diet quite well. At this time, she was medically stable for discharge home and followup with her oncologist and radiation oncologist, primary care provider. SUBJECTIVE: The patient reports she feels well, has no complaints. Denies any chest pain, shortness of breath, fevers, chills, nausea, vomiting, diarrhea, lightheadedness, dizziness. OBJECTIVE: VITAL SIGNS: Temperature 98.4, pulse 85, respiratory rate 17, blood pressure 126/59, oxygen saturation 95% on room air. GENERAL: She is a frail, elderly female sitting up in bed. She does not appear to be in any acute distress. HEENT: She has a dysconjugate gaze. Moist mucous membranes. No elevation of CVP. CARDIOVASCULAR EXAM: S1, S2, regular. She is not tachycardic. RESPIRATORY EXAM: Fairly clear. ABDOMINAL EXAM: Benign. There is dullness to percussion over the right middle lobe. Abdominal exam is benign, obese. EXTREMITIES: No clubbing, cyanosis or edema. She appears mildly wasted. LABORATORY STUDIES: WBC 1.6, hemoglobin 9.6, up from 7.7, hematocrit 27.5, platelet count 50. Chemistry panel: Sodium 142, potassium 3.5, chloride 106, bicarbonate 30 Microbiology was positive for Klebsiella pneumoniae, fairly sensitive. Urinalysis was slightly suggestive of urinary tract infection. The patient had a chest x-ray that was fairly unremarkable. ASSESSMENT AND PLAN: This is a 72-year-old female with symptomatic anemia and dehydration related to chemotherapy. Problems: 1. Symptomatic anemia. The patient had been actively undergoing chemotherapy. Hemoglobin was 7.7. She did have a good improvement in her symptoms with transfusion of two units of packed red blood cells. Continue followup with her outpatient oncologist. 2. Dehydration. The patient had been taking poor oral intake while undergoing aggressive radiation. She will be given 6 days of rest, as discussed with Dr. Lyn. She is improving at this time and tolerating an oral diet quite well. She has been re-hydrated. 3. Acute kidney injury, resolved. 4. Lactic acidosis, resolved, secondary to dehydration at the time of admission. 5. Hypertension. She is on metoprolol with holding parameters. She may need to just revisit in the future; she may no longer require it given she is losing weight and prone to dehydration. 6. Type 2 diabetes, diet controlled. 7. Lung cancer. She will followup with Dr. Haque and Dr. Lyn in the outpatient setting within the next week. 8. Deep vein thrombosis (DVT) prophylaxis. The patient has been on heparin. 9. Urinary tract infection. Although the UA was not entirely convincing, the urine culture did return positive and given her immunocompromised state, I will treat her with cefdinir 300 mg by mouth twice a day to complete a 14-day course. DISPOSITION: The patient has been cleared by physical therapy. She is being discharged home to the care of her family. She is at her functional baseline. She is to followup with a PTP within 7 days and followup with Dr. Haque within a week and followup with Dr. Lyn within a week. Her activity and diet are as prior to admission. MEDICATIONS AT THE TIME OF DISCHARGE: - cefdinir 300 mg by mouth twice a day, quantity 12 - folic acid 400 daily - metoprolol 100 mg nightly The patient has been advised to stop taking aspirin as she is thrombocytopenic related to chemotherapy. 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 TIFF
== END 2017-03-13 11:59 | disposition home or self-care (01) | DRG 809 ==
LOC: M ED 09:43 → M ED INP 12:36 → M MSPAV 15:10
PROVIDERS: ADMIT Internal Medicine; ATTEND Internal Medicine
PROC: 30233N1 Transfusion of Nonautologous Red Blood Cells into Peripheral Vein, Percutaneous Approach (ICD-10-PCS; principal; 2017-03-12)
DX: D61.810 Antineoplastic chemotherapy induced pancytopenia (principal); N17.9 Acute kidney failure, unspecified; E87.2 Acidosis; C34.90 Malignant neoplasm of unspecified part of unspecified bronchus or lung; N39.0 Urinary tract infection, site not specified; E86.0 Dehydration; E11.9 Type 2 diabetes mellitus without complications; I10 Essential (primary) hypertension; E78.5 Hyperlipidemia, unspecified; Z79.899 Other long term (current) drug therapy; Z87.891 Personal history of nicotine dependence; R00.1 Bradycardia, unspecified

== ENCOUNTER → 2017-03-11 | Outpatient (CLI) | payer MEDICARE, OTHER ==
[~2017-03-11] MED LIST changes: +CEFD1CAP8 PO; +FOLI400T PO; +METO-209 PO
== END ==
LOC: M LAB 09:23
PROVIDERS: ATTEND Radiology Radiation Oncology
DX: R30.0 Dysuria (principal); R53.1 Weakness

== ENCOUNTER → 2017-03-17 | Outpatient (CLI) | payer MEDICARE, OTHER ==
[~2017-03-17] MED LIST changes: +CEFD1CAP8 PO; +FOLI400T PO; +METO-209 PO
--- NOTE | 2017-03-17 08:47 | RADONC ---
RADIATION ONCOLOGY PROGRESS NOTE: DATE: 03/17/2017 CHART NUMBER: [id number]. PROGRESS NOTE: Ms. Singh is thus far at a dose of 4860 cGy to her right lung and mediastinum. She was last treated on 03/11/2017. She was hospitalized since then with a urinary tract infection and low blood counts. As of Friday, her white blood cell count was 1.6, which was increasing again. Her platelets however, have continued to fall and were 50 on Friday down from 65 on and 104 on Friday. She is now on antibiotics and has been discharged from the hospital. She came in to see me today prior to treatment. The patient reports that she is able to swallow much better and feels 100% better. She has no complaints at this time related to her radiation therapy or disease other than some slight esophagitis. On physical exam, the patient's weight is back up to 166-1/2 pounds. Her skin is in good condition with no evidence of moist or dry desquamation. The remainder of physical exam remains unchanged. I have sent Ms. Singh today for a CBC to be undertaken. She is scheduled to come in tomorrow and pending the results of that CBC we may reinitiate treatment.
[2017-03-17 09:59] LABS: BASO % 0.1 % (0.0-1.0); EOS % 0.5 % (0.0-3.0); LARGE UNSTAINED CELL # 0.1 K/mm3 (0.0-0.4); LARGE UNSTAINED CELL % 1.3 % (0.0-4.0); LYMPH # 0.5 K/mm3 (1.5-4.5); MEAN CORPUSCULAR HEMOGLOBIN 30.3 pg (27.0-33.0); MEAN CORPUSCULAR HGB CONC 33.8 g/dl (32.0-36.5); MEAN CORPUSCULAR VOLUME 89.6 fl (80.0-96.0); MONO # 0.5 K/mm3 (0.0-0.8); MONO % 6.2 % (0.0-5.0); NEUTROPHILS # 6.3 K/mm3 (1.8-7.7); NEUTROPHILS % 85.9 % (36.0-66.0); WHITE BLOOD COUNT 7.3 K/mm3 (4.0-10.0)
[2017-03-17 10:36] LABS: PLATELET COUNT, AUTOMATED 34 k/mm3 (150-450)
== END ==
LOC: M ONCR 08:27
PROVIDERS: ATTEND Radiology Radiation Oncology
DX: C34.90 Malignant neoplasm of unspecified part of unspecified bronchus or lung (principal); D69.6 Thrombocytopenia, unspecified

== ENCOUNTER 2017-03-27 11:44 | Outpatient (RCR) | payer MEDICARE, OTHER ==
[~2017-03-27 11:44] MED LIST changes: -ATOR1TAB18 PO; +ATOR80TA59 PO; -METO-209 PO; +METO1TAB33 PO; +PERC5TAB12 PO; -PERC5TAB6 PO
--- NOTE | 2017-04-01 14:13 | RADONC ---
RADIATION ONCOLOGY PROGRESS NOTE DATE: 04/01/2017 CHART NUMBER: Ms. Singh is presently at a dose of 6660 cGy to her primary site and is actually tolerating her radiation quite well. The patient came in today once again complaining of weakness, fatigue and other complaints similar if not identical to her complaints with her previous urinary tract infections. I have set her up to see Dr. Lewis. I had a lengthy conversation with Dr. Lewis of infectious disease today as well. The patient has been treated on multiple occasions and has had these recurring urinary tract infections that have actually interfered with our treatments. REVIEW OF SYSTEMS: The patient's review of systems again is positive for weakness and some nausea, but is otherwise noncontributory. She denies nausea, vomiting, fevers, chills, night sweats, diplopia, headaches, anxiety or depression, anorexia, weight loss, visual disturbances, chest pain, urinary or bowel difficulties, bone pain, or neurological problems. PHYSICAL EXAMINATION: The patient is a chronically ill-appearing white female in a wheelchair. HEENT: Exam is normocephalic, atraumatic. Extraocular movements are intact. There is no palpable lymphadenopathy present. Skin over the treated field shows no evidence of radiation change present. Her lungs are clear to auscultation and percussion. ASSESSMENT: Radiation is scheduled for completion tomorrow. I have given the patient another liter of IV fluids today. After yesterday's liter of fluids, the patient reported that she felt much better overall and is now drinking and eating. I have, however, given her another liter of normal saline today. In addition, as noted above, I spoke with Dr. Lewis who will be seeing this patient in managing her urinary issues. Radiation will continue as scheduled. [facility]
--- NOTE | 2017-04-04 06:51 | RADONC ---
RADIATION ONCOLOGY TREATMENT SUMMARY: DATE: 04/03/2017 CHART NUMBER: [id number]. DIAGNOSIS: Right lung cancer. STAGE: III A, [id number]. ECOG PERFORMANCE STATUS: 1. TREATMENT SUMMARY: Ms. 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 We treated the patient to her primary site for a total dose of 6840 cGy delivered in 38 fractions over 73 elapsed days from 01/21/2017 through 04/02/2017. The patient's primary site was treated on the linear accelerator utilizing a 18 MV photon beam via 3-D conformal technique with multiple cone downs in order to maintain the spinal cord and all critical structures within their tolerance limits. Ms. Singh had a very difficult time throughout the course of treatment, although most of her issues were not related to radiation. She developed several urinary tract infections with sepsis requiring hospitalizations and interruption of treatment. She also had difficulty swallowing requiring IV fluids. Again, she had a very protracted course of radiation with multiple interruptions. We were able complete her therapy today and hopefully we have achieved local control of her lesion. I have sent the patient and she had a consultation with Dr. Lewis, the infectious disease doctor, yesterday to discuss management of these recurrent infections. I had multiple discussions with Dr. Lewis as far as her long-term care goes as well. I have scheduled the patient to see me again in 1 month for further followup. She will continue her close management with her medical oncologist, Dr. Haque, and will be following Dr. Lewis with regards to her urinary tract infection. In addition, she will be seeing her primary care doctor, Dr. Savi Padilla, as well. cc: MD Savi Ragland MD
== END 2017-04-25 ==
LOC: M ONCR 11:44
PROVIDERS: ATTEND Radiology Radiation Oncology
DX: C34.11 Malignant neoplasm of upper lobe, right bronchus or lung (principal)

== ENCOUNTER → 2017-03-31 | Outpatient (CLI) | payer MEDICARE, OTHER ==
[~2017-03-31] MED LIST changes: +ATOR1TAB18 PO; -ATOR80TA59 PO; +METO-209 PO; -METO1TAB33 PO; -PERC5TAB12 PO; +PERC5TAB6 PO
[2017-03-31 10:20] LABS: MEAN CORPUSCULAR HEMOGLOBIN 23.6 pg (27.0-33.0); MEAN CORPUSCULAR HGB CONC 33.7 g/dl (32.0-36.5); MEAN CORPUSCULAR VOLUME 96.7 fl (80.0-96.0); PLATELET COUNT, AUTOMATED 113 k/mm3 (150-450); RED CELL DISTRIBUTION WIDTH 20.2 % (11.5-14.5); WHITE BLOOD COUNT 1.2 K/mm3 (4.0-10.0)
[2017-03-31 10:21] LABS: BASO % 0.6 % (0.0-1.0); EOS % 1.6 % (0.0-3.0); LARGE UNSTAINED CELL % 2.9 % (0.0-4.0); LYMPH # 0.1 K/mm3 (1.5-4.5); LYMPH % 8.1 % (24.0-44.0); MONO % 2.9 % (0.0-5.0); NEUTROPHILS % 83.8 % (36.0-66.0)
[2017-03-31 10:22] LABS: DIFF SLIDE NUMBER 125
[2017-03-31 10:25] LABS: ALBUMIN 3.6 GM/DL (3.2-5.2); ALBUMIN/GLOBULIN RATIO 1.06 (1.00-1.93); BILIRUBIN,TOTAL 2.4 MG/DL (0.2-1.0); CALCIUM LEVEL 8.8 MG/DL (8.8-10.2); CREATININE FOR GFR 1.19 MG/DL (0.55-1.02); GLOMERULAR FILTRATION RATE 47.2 (>39); POTASSIUM SERUM 4.1 MEQ/L (3.5-5.1)
== END ==
LOC: M LAB 08:34
PROVIDERS: ATTEND Radiology Radiation Oncology
DX: C34.11 Malignant neoplasm of upper lobe, right bronchus or lung (principal)

== ENCOUNTER 2017-04-05 19:34 | Inpatient (IN) | payer MEDICARE, OTHER ==
[~2017-04-05] VITALS: Ht 165.1 cm; Wt 73.8 kg
[~2017-04-05 19:34] MED LIST changes: -ATOR1TAB18 PO; +ATOR80TA59 PO; -METO-209 PO; +METO1TAB33 PO; +PERC5TAB12 PO; -PERC5TAB6 PO
[2017-04-05 23:35] VITALS: BP 113/49
[2017-04-06] VITALS (7 sets, daily range): BP systolic 98–135; BP diastolic 51–68
[2017-04-06] MEDS ORDERED: ACETAMINOPHEN TAB 650MG DOSE (2X325MG) PO PRN (01:30)
[2017-04-06] MEDS: NS 1,000 ML IV SCH ×2 (01:59→13:16)
--- NOTE | 2017-04-06 05:59 | HPEPDOC ---
General Date of Admission Apr 05, 2017 at 23:26 Primary Care Physician: Savi Padilla Attending Physician: AMY BAZAN MD Chief Complaint The patient is a 72-year-old female admitted with a reason for visit of Severe Anemia. Source: Patient Exam Limitations: No limitations Timing/Duration: Day(s) Severity: Moderate Associated Symptoms: Loss of appetite, Malaise, Shortness of breath, Weakness, Dizziness History of Present Illness 72-year-old female, history of lung cancer on chemotherapy and radiation presented to the emergency room for generalized weakness, shortness of breath. Her lung cancer was diagnosed in September 2016 and he received 4 cycles of chemotherapy and 35 seconds of radiation therapy. Had a oncologist is Dr. Canales. She started getting weakness and shortness of breath and was sent to the emergency room. She was found to be pancytopenic with hemoglobin of 5.7 and was transferred to [facility] Home Medications Scheduled Metoprolol Succinate (Metoprolol Succinate ER) 100 Mg Tab, 100 MG PO DAILY, ( Reported) Allergies Coded Allergies: No Known Drug Allergy (Verified Allergy, Unknown, 09/11/16) Past Medical History Medical History Lung cancer, diabetes mellitus Surgical History Carpal tunnel Family History Significant Family History: No pertinent family hx Social History * Smoker: Denies Alcohol: Denies Drugs: denies Recent Travel/Sick Contacts: Denies: Recent travel, Recent sick contacts Review of Symptoms Constitutional: Reports: Weakness, Fatigue, Weight Loss, Lethargy, Denies: Chills, Fever, Night Sweats Eyes: Denies: Pain, Vision change ENT: Denies: Head Aches, Ear Pain, Dysphagia Skin: Denies: Rash, Lesions, Breakdown Pulmonary: Reports: Dyspnea, Denies: Cough Cardiovascular: Reports: Lt Headedness, Denies: Chest Pain, Palpitations, Orthopnea, Paroxysmal Noc. Dyspnea Gastrointestinal: Denies: Nausea, Vomiting, Abdominal Pain, Diarrhea Genitourinary: Denies: Dysuria, Frequency, Incontinence, Retention Hematologic: Denies: Bruising, Bleeding Excessively Musculoskeletal: Denies: Neck Pain, Back Pain, Joint Pain, Muscle Pain, Spasms Neurological: Denies: Weakness, Numbness, Change in speech, Confusion Psych: Reports: Mood Normal, Denies: Depression, Memory Issues Physical Examination General Exam: Positive: Alert, No Acute Distress, Other (frail, elderly) Eye Exam: Positive: PERRLA, EOMI, Other Eye Symptoms (pallor), Negative: Sclera icteric ENT Exam: Positive: Atraumatic, Mucous membr. moist/pink, Pharynx Normal Neck Exam: Positive: Supple, Negative: JVD, thyromegaly Chest Exam: Positive: Clear to auscultation, Normal air movement Heart Exam: Positive: Rate Normal, Regular Rhythm, Normal S1, Normal S2, Negative: Murmurs, Rubs Telemetry: Positive: No significant arrhythmia Abdomen Exam: Positive: Normal bowel sounds, Soft, Negative: Tenderness, Hepatospenomegaly Extremity Exam: Positive: Normal pulses, Negative: Clubbing, Cyanosis, Edema Skin Exam: Positive: Nl turgor and temperature, Negative: Breakdown, Lesion Neuro Exam: Positive: Normal Gait, Normal Speech, Cranial Nerves 3-12 NL, Reflexes 2+ Psych Exam: Positive: Mental status NL, Mood NL, Oriented x 3 Vital Signs Vital Signs Date Time Temp Pulse Resp B/P (MAP) Pulse Ox O2 Delivery O2 Flow Rate FiO2 04/06/17 04:00 Nasal Cannula 3.0 04/05/17 23:35 99.1 104 20 113/49 (70) 100 Laboratory Data Labs 24H Laboratory Tests 2 04/06/17 01:52: Troponin I 0.72H Assessment/Plan 72-year-old female, history of lung cancer status post chemotherapy and radiation presented to the emergency room for shortness of breath and weakness likely due to pancytopenia and a severe anemia. Hemoglobin 5.7 Problems (1) Elevated troponin Problem Text: Likely due to demand ischemia. Troponin was 0.14. No chest pain continue trending troponin . We will get echocardiogram and cardiac consult, If her troponin continued to rise (2) Respiratory distress Problem Text: Estimated assisted to CVA, anemia, continue with oxygen and a blood transfusion (3) Severe anemia Problem Text: Negative guaiac. Severe anemia due to pancytopenia due to chemotherapy. Transfuse 2 units of the PRBC. A stat and recheck H&H Plan / VTE VTE Prophylaxis Ordered?: No VTE Exclusion Pharmacological: Bleeding Risk Plan IVF: Initiate Diet: Continue Current Activity: Continue Current Therapy: PT, OT Diagnostics: Repeat Labs in AM Anticipated Discharge: Home SELENE CAMPUZANO MD Apr 06, 2017 05:59
--- NOTE | 2017-04-06 06:19 | ECGEPIP ---
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
[2017-04-06] MEDS: PANTOPRAZOLE 40MG INJ (PROTONIX) (C9113) IV SCH (08:19)
[2017-04-06] MEDS: METOPROLOL TART 25 MG TABLET PO SCH ×3 (08:19→18:00)
[2017-04-06 09:53] LABS: CALCIUM LEVEL 7.9 MG/DL (8.8-10.2); CREATININE FOR GFR 0.97 MG/DL (0.55-1.02); GLOMERULAR FILTRATION RATE 59.8 (>39); PERCENT SATURATION 97.8 % (13.2-37.4); POTASSIUM SERUM 3.6 MEQ/L (3.5-5.1)
[2017-04-06 09:54] LABS: WHITE BLOOD COUNT 4.3 K/mm3 (4.0-10.0)
[2017-04-06 09:55] LABS: RED CELL DISTRIBUTION WIDTH 16.3 % (11.5-14.5)
[2017-04-06 09:57] LABS: PLATELET COUNT, AUTOMATED 15 k/mm3 (150-450)
[2017-04-06 10:00] LABS: MEAN CORPUSCULAR HEMOGLOBIN 33.1 pg (27.0-33.0); MEAN CORPUSCULAR HGB CONC 36.4 g/dl (32.0-36.5); MEAN CORPUSCULAR VOLUME 90.2 fl (80.0-96.0)
[2017-04-06 10:04] LABS: RETIC HEMOGLOBIN CONTENT CHr 36.6 PG (24-36); RETICULOCYTE % 0.66 % (0.5-1.5); RETICULOCYTE ABSOLUTE ADVIA212 14 x10(9)/L (17-77)
[2017-04-06 10:05] LABS: ADD MANUAL DIFFER YES; DIFF SLIDE NUMBER 91
[2017-04-06 10:46] LABS: ANISOCYTOSIS 1+; HYPERSEGMENTED POLYS 1+
[2017-04-06 10:48] LABS: DOHLE BODIES 1+
--- NOTE | 2017-04-06 10:56 | IPNPDOC ---
Subjective Date Seen The patient was seen on 04/06/17. Subjective Chief Complaint/HPI The patient is a 72-year-old female admitted with a reason for visit of Severe Anemia. Events since last encounter Remembers me from previous encounters, feels better, no chest pain, some sob, improved, no palpitations (has elevated hr and rvr) Constitutional: Denies: Chills, Fever Pulmonary: Reports: Dyspnea, Denies: Cough Cardiovascular: Denies: Chest Pain, Palpitations Gastrointestinal: Denies: Nausea, Vomiting, Abdominal Pain Hematologic: Denies: Bleeding Excessively Objective Physical Examination General Exam: Positive: Alert, Cooperative, No Acute Distress, Other (frail, elderly) Eye Exam: Negative: Sclera icteric ENT Exam: Positive: Mucous membr. moist/pink Chest Exam: Positive: Clear to auscultation, Normal air movement, Negative: Rales, Rhonchi, Wheezing Heart Exam: Positive: Rate Normal, Irregular Rhythm, Normal S1, Normal S2 Telemetry: Positive: Atrial fibrillation, Tachycardia Abdomen Exam: Positive: Normal bowel sounds, Soft, Negative: Tenderness Extremity Exam: Negative: Edema Skin Exam: Positive: Nl turgor and temperature Neuro Exam: Positive: Normal Speech Psych Exam: Positive: Mental status NL, Mood NL, Oriented x 3, Negative: Anxiety Assessment /Plan Problems (1) Elevated troponin Problem Text: Likely due to demand ischemia. Troponin trending upwards. No chest pain continue trending troponin, control heart rate and transfuse prbc. Consider cardiology consult depending on clinical course. No role for lovenox/ asa currently with pancytopenia and severe anemia (2) Respiratory distress Problem Text: Related to anemia, and atrial fibrillation, continue with oxygen and a blood transfusion Apparently feeling better (3) Severe anemia Problem Text: Negative guaiac. Severe anemia due to pancytopenia due to chemotherapy. Transfuse 2 units of the PRBC. Not iron deficient Reticulocyte count low, related to chemotherapy (4) HTN (hypertension) Status: Chronic Problem Text: not currently elevated (5) Hyperlipidemia Status: Chronic Problem Text: not on statin currently (6) Diabetes Status: Chronic Problem Specific Plan: Monitor Clinically (7) Lung cancer Status: Chronic (8) Atrial fibrillation with RVR Status: Acute Problem Text: rate control ordered anemia likely a contributing factor Has had afib before according to patient, has seen Dr. Tilley (9) Pancytopenia due to chemotherapy Status: Acute Plan/VTE VTE Prophylaxis Ordered?: Yes (mechanical) VTE Exclusion Pharmacological: Bleeding Risk Plan IVF: Initiate Diet: Continue Current Activity: Continue Current Therapy: PT, OT Diagnostics: Repeat Labs in AM Anticipated Discharge: Home VS, I&O, 24H, Fishbone Vital Signs/I&O Vital Signs Date Time Temp Pulse Resp B/P (MAP) Pulse Ox O2 Delivery O2 Flow Rate FiO2 04/06/17 08:19 105 122/69 04/06/17 08:00 Nasal Cannula 3.0 04/06/17 06:45 98.0 18 100 I&O- Last 24 Hours up to 6 AM 04/06/17 06:00 Intake Total 400 ml Balance 400 ml Laboratory Data 24H LABS Laboratory Tests 2 04/06/17 01:52: Troponin I 0.72H 04/06/17 09:15: Troponin I 1.10#H, Absolute Reticulocyte Count 14L, Percent Reticulocyte Count 0.66, Reticulocyte Hgb Content (CHr) 36.6H, Anion Gap 10, Glomerular Filtration Rate 59.8, Blood Urea Nitrogen 31H, Creatinine 0.97, Sodium Level 139, Potassium Level 3.6, Chloride Level 99, Carbon Dioxide Level 30, Calcium Level 7.9L, Iron Level 223H, Total Iron Binding Capacity 228L, Transferrin % Saturation 97.8H, Ferritin 2174H CBC/BMP Laboratory Tests 04/06/17 09:15 Red Blood Count 1.99 L, Mean Corpuscular Volume 90.2, Mean Corpuscular Hemoglobin 33.1 H, Mean Corpuscular Hemoglobin Concent 36.4, Red Cell Distribution Width 16.3 H, Calcium Level 7.9 L AMY BAZAN MD Apr 06, 2017 10:56
--- NOTE | 2017-04-06 11:24 | ECGEPIP ---
Stationary ECG Study [facility] Test Date: 2017-04-06 Pat Name: BENITA REA Department: Room: [place] [address] Gender: F Tailor [employer]: ROSA ISELA : 1945 Requested By: MAGDY Florentino Order Number: [id number] Reading MD: Magdy Schultz Measurements Intervals [place] Rate: 116 P: AR: 0 QRS: 1 QRSD: 97 T: 37 QT: 329 QTc: 457 Interpretive Statements ATRIAL FIBRILLATION WITH RAPID VENTRICULAR RESPONSE NONSPECIFIC ST & T-WAVE ABNORMALITY No previous tracing in computer has shown atrial fibrillation Electronically Signed On 04-06-2017 11:23:36 EDT by Magdy Schultz
[2017-04-06 15:39] LABS: BASO % 0.1 % (0.0-1.0); EOS % 0.1 % (0.0-3.0); LARGE UNSTAINED CELL # 0.1 K/mm3 (0.0-0.4); LARGE UNSTAINED CELL % 1.6 % (0.0-4.0); LYMPH # 0.3 K/mm3 (1.5-4.5); LYMPH % 6.4 % (24.0-44.0); MONO # 0.2 K/mm3 (0.0-0.8); MONO % 5.4 % (0.0-5.0); NEUTROPHILS # 3.7 K/mm3 (1.8-7.7); NEUTROPHILS % 86.5 % (36.0-66.0); WHITE BLOOD COUNT 4.3 K/mm3 (4.0-10.0)
[2017-04-06 15:44] LABS: MEAN CORPUSCULAR HEMOGLOBIN 31.7 pg (27.0-33.0); MEAN CORPUSCULAR HGB CONC 35.8 g/dl (32.0-36.5); MEAN CORPUSCULAR VOLUME 88.6 fl (80.0-96.0)
[2017-04-06 15:45] LABS: PLATELET COUNT, AUTOMATED 15 k/mm3 (150-450)
[2017-04-06 16:02] LABS: ALBUMIN 3.3 GM/DL (3.2-5.2); ALBUMIN/GLOBULIN RATIO 0.97 (1.00-1.93); BILIRUBIN,DIRECT 0.8 MG/DL (0.0-0.2); BILIRUBIN,TOTAL 4.7 MG/DL (0.2-1.0); TOTAL PROTEIN 6.7 GM/DL (6.4-8.2)
--- NOTE | 2017-04-06 17:36 | ECGEPIP ---
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
[2017-04-07] VITALS (8 sets, daily range): BP systolic 15–132; BP diastolic 54–64
[2017-04-07 05:42] LABS: MEAN CORPUSCULAR HEMOGLOBIN 32.7 pg (27.0-33.0); MEAN CORPUSCULAR VOLUME 88.7 fl (80.0-96.0); RED CELL DISTRIBUTION WIDTH 16.2 % (11.5-14.5); WHITE BLOOD COUNT 4.8 K/mm3 (4.0-10.0)
[2017-04-07 05:43] LABS: MEAN CORPUSCULAR HGB CONC 36.9 g/dl (32.0-36.5)
--- NOTE | 2017-04-07 05:44 | ECHO ---
DATE OF PROCEDURE: 04/06/2017 REFERRING PHYSICIAN: Dr. Magdy Schultz. INDICATION: Shortness of breath, elevated troponin. HEIGHT:67 inches. WEIGHT: 154 pounds. MEASUREMENTS: Aortic root: 2.8 cm Proximal ascending aorta: 3.1 cm Left atrium: 3.9 cm Ventricular septum: 0.94 cm Posterior wall: 1.04 cm Left ventricle diastole: 5.2 cm Left ventricle systole: 3.3 cm LVOT: 2.0 cm Right ventricle: 2.2 cm Inferior vena cava: 1.5 cm DOPPLER MEASUREMENTS: Moderate aortic stenosis. No aortic regurgitation. Peak aortic valve gradient: 339 cm/s Aortic valve VTI: 72.7 cm Peak aortic valve gradient: 46 mmHg Mean aortic valve gradient: 29 mmHg Aortic valve area: 1.53 cm2 (continuity equation, VTI) Aortic stenosis dimensionless index: 0.49 LVOT velocity: 150 cm/s LVOT VTI: 35.3 cm Very mild mitral regurgitation. No mitral stenosis. Mitral E velocity (continuous wave): 130 cm/s Mitral A velocity: 167 cm/s Mitral pressure half time: 95 ms Mitral E velocity (pulse wave): 134 cm/s Mitral A velocity: 204 cm/s Mitral deacceleration time: 190 ms Very mild tricuspid regurgitation. Estimated right ventricular systolic pressure at least 47 mmHg assuming an atrial pressure of 5 mmHg. MITRAL ANNULAR TISSUE DOPPLER: E-prime lateral: 8.2 cm/s E-prime septal: 5.2 cm/s DESCRIPTION: Rhythm was sinus. This is a 2D, M-mode, color flow Doppler and pulse wave Doppler examination and included mitral annular tissue Doppler. Moderately technically difficult echocardiogram. No pericardial effusion. CONCLUSIONS: 1. Degenerative, calcific aortic valve disease with moderate aortic stenosis. No aortic regurgitation. 2. Normal left ventricle internal dimensions and wall thickness. Normal LV wall motion and wall thickening. No regional wall motion abnormalities of the left ventricle. Normal LV systolic function. LVEF 65% by visual estimate. Grade 1 LV diastolic dysfunction (impaired relaxation filling pattern). 3. Severe mitral annular calcification. No mitral stenosis. Very mild mitral regurgitation. 4. Suggestive of at least moderate elevation of estimated right ventricle systolic pressure (at least 47 mmHg). 5. Mild left atrial dilatation.
[2017-04-07] MEDS: METOPROLOL TART 25 MG TABLET PO SCH ×5 (05:46→23:52)
[2017-04-07 06:10] LABS: ALBUMIN 2.9 GM/DL (3.2-5.2); ALBUMIN/GLOBULIN RATIO 0.91 (1.00-1.93); ALKALINE PHOSPHATASE 110 U/L (45-117); ALT/SGPT 34 U/L (12-78); ANION GAP 10 MEQ/L (8-16); AST/SGOT 34 U/L (15-37); BILIRUBIN,TOTAL 3.4 MG/DL (0.2-1.0); BLOOD UREA NITROGEN 23 MG/DL (7-18); CALCIUM LEVEL 8.3 MG/DL (8.8-10.2); CARBON DIOXIDE LEVEL 28 MEQ/L (21-32); CHLORIDE LEVEL 99 MEQ/L (98-107); CREATININE FOR GFR 0.79 MG/DL (0.55-1.02); GLOMERULAR FILTRATION RATE > 60.0 (>39); GLUCOSE, FASTING 155 MG/DL (83-110); POTASSIUM SERUM 3.2 MEQ/L (3.5-5.1); SODIUM LEVEL 137 MEQ/L (136-145); TOTAL PROTEIN 6.1 GM/DL (6.4-8.2)
--- NOTE | 2017-04-07 06:59 | IPNPDOC ---
Subjective Date Seen The patient was seen on 04/07/17. Subjective Chief Complaint/HPI The patient is a 72-year-old female admitted with a reason for visit of Severe Anemia. Events since last encounter Feeling well, tolerating diet, feels well, no chest pain, not short of breath Constitutional: Denies: Fever Pulmonary: Denies: Dyspnea, Cough Cardiovascular: Denies: Chest Pain, Palpitations Gastrointestinal: Denies: Nausea, Vomiting, Abdominal Pain Objective Physical Examination General Exam: Positive: Alert, Cooperative, No Acute Distress, Other (frail, elderly) Eye Exam: Negative: Sclera icteric ENT Exam: Positive: Mucous membr. moist/pink Chest Exam: Positive: Clear to auscultation, Normal air movement, Negative: Rales, Rhonchi, Wheezing Heart Exam: Positive: Rate Normal, Irregular Rhythm, Normal S1, Normal S2 Telemetry: Positive: Atrial fibrillation, Tachycardia Abdomen Exam: Positive: Normal bowel sounds, Soft, Negative: Tenderness Extremity Exam: Negative: Edema Assessment /Plan Problems (1) Elevated troponin Problem Text: Likely due to demand ischemia. Troponin trended upwards, now falling. No chest pain, controlling heart rate as bp allows and transfused prbc. No role for cardiology consult. No role for lovenox/asa currently with thrombocytopenia and severe anemia (2) Respiratory distress Problem Text: Related to anemia, and atrial fibrillation, continue with oxygen and a blood transfusion as needed Apparently feeling better (3) Severe anemia Problem Text: Negative guaiac. Severe anemia due to pancytopenia due to chemotherapy. Transfuse 2 units of the PRBC. Not iron deficient Reticulocyte count low, related to chemotherapy (4) HTN (hypertension) Status: Chronic Problem Text: not currently elevated (5) Hyperlipidemia Status: Chronic Problem Text: not on statin currently (6) Diabetes Status: Chronic Problem Specific Plan: Monitor Clinically (7) Lung cancer Status: Chronic (8) Atrial fibrillation with RVR Status: Acute Problem Text: rate control ordered anemia likely a contributing factor Has had afib before according to patient, has seen Dr. Tilley (9) Pancytopenia due to chemotherapy Status: Acute Problem Text: developing, developing thrombocytopenia- received platelet transfusion Plan/VTE VTE Prophylaxis Ordered?: Yes (mechanical) VTE Exclusion Pharmacological: Bleeding Risk Plan IVF: Initiate Diet: Continue Current Activity: Continue Current Therapy: PT, OT Diagnostics: Repeat Labs in AM Anticipated Discharge: Home VS, I&O, 24H, [place] Vital Signs/I&O Vital Signs Date Time Temp Pulse Resp B/P (MAP) Pulse Ox O2 Delivery O2 Flow Rate FiO2 04/07/17 05:46 101 107/54 04/07/17 04:00 99.6 20 95 Room Air 04/06/17 12:00 3.0 I&O- Last 24 Hours up to 6 AM 04/07/17 06:00 Intake Total 740 ml Output Total 700 ml Balance 40 ml Laboratory Data 24H LABS Laboratory Tests 2 04/06/17 09:15: Neutrophils 85H, Lymphocytes (Manual) 12L, Monocytes (Manual) 3, Hypersegmented Polys 1+, Dohle Bodies 1+, Platelet Estimate MARKED DECREASE, Anisocytosis 1+, Absolute Reticulocyte Count 14L, Percent Reticulocyte Count 0.66, Reticulocyte Hgb Content (CHr) 36.6H, Anion Gap 10, Glomerular Filtration Rate 59.8, Blood Urea Nitrogen 31H, Creatinine 0.97, Sodium Level 139, Potassium Level 3.6, Chloride Level 99, Carbon Dioxide Level 30, Calcium Level 7.9L, Iron Level 223H , Total Iron Binding Capacity 228L, Transferrin % Saturation 97.8H, Ferritin 2174H, Troponin I 1.10#H 04/06/17 15:18: Troponin I 3.49#*H, White Blood Count 4.3, Red Blood Count 2.70L, Hemoglobin 8.6 #L, Hematocrit 23.9L, Mean Corpuscular Volume 88.6, Mean Corpuscular Hemoglobin 31.7, Mean Corpuscular Hemoglobin Concent 35.8, Red Cell Distribution Width 16.0H, Platelet Count 15*L, Neutrophils (%) (Auto) 86.5H, Lymphocytes (%) (Auto ) 6.4L, Monocytes (%) (Auto) 5.4H, Eosinophils (%) (Auto) 0.1, Basophils (%) ( Auto) 0.1, Neutrophils # (Auto) 3.7, Lymphocytes # (Auto) 0.3L, Monocytes # ( Auto) 0.2, Eosinophils # (Auto) 0.0, Basophils # (Auto) 0.0, Large Unclassified Cells % 1.6, Large Unclassified Cells # 0.1, Aspartate Amino Transf (AST/SGOT) 38H, Alanine Aminotransferase (ALT/SGPT) 36, Alkaline Phosphatase 121H, Total Bilirubin 4.7H, Direct Bilirubin 0.8H, Total Creatine Kinase 83, Creatine Kinase MB 5.8H, Creatine Kinase MB Relative Index 6.98H, Total Protein 6.7, Albumin 3.3, Albumin/Globulin Ratio 0.97L 04/06/17 20:49: Troponin I 2.21#*H, Total Creatine Kinase 61, Creatine Kinase MB 3.9H, Creatine Kinase MB Relative Index 6.39H 04/07/17 05:15: Anion Gap 10, Glomerular Filtration Rate > 60.0, Blood Urea Nitrogen 23H, Creatinine 0.79, Sodium Level 137, Potassium Level 3.2L, Chloride Level 99, Carbon Dioxide Level 28, Calcium Level 8.3L, Troponin I 1.36#H, Aspartate Amino Transf (AST/SGOT) 34, Alanine Aminotransferase (ALT/SGPT) 34, Alkaline Phosphatase 110, Total Bilirubin 3.4H, Total Creatine Kinase 38, Creatine Kinase MB 2.0, Creatine Kinase MB Relative Index 5.26H, Total Protein 6.1L, Albumin 2.9L, Albumin/Globulin Ratio 0.91L CBC/BMP Laboratory Tests 04/06/17 09:15 Red Blood Count 1.99 L, Mean Corpuscular Volume 90.2, Mean Corpuscular Hemoglobin 33.1 H, Mean Corpuscular Hemoglobin Concent 36.4, Red Cell Distribution Width 16.3 H, Calcium Level 7.9 L 04/06/17 15:18 Red Blood Count 2.70 L, Mean Corpuscular Volume 88.6, Mean Corpuscular Hemoglobin 31.7, Mean Corpuscular Hemoglobin Concent 35.8, Red Cell Distribution Width 16.0 H, Neutrophils (%) (Auto) 86.5 H, Lymphocytes (%) (Auto ) 6.4 L, Monocytes (%) (Auto) 5.4 H, Eosinophils (%) (Auto) 0.1, Basophils (%) ( Auto) 0.1, Neutrophils # (Auto) 3.7, Lymphocytes # (Auto) 0.3 L, Monocytes # ( Auto) 0.2, Eosinophils # (Auto) 0.0, Basophils # (Auto) 0.0 04/07/17 05:15 Red Blood Count 2.44 L, Mean Corpuscular Volume 88.7, Mean Corpuscular Hemoglobin 32.7, Mean Corpuscular Hemoglobin Concent 36.9 H, Red Cell Distribution Width 16.2 H, Calcium Level 8.3 L, Aspartate Amino Transf (AST/SGOT ) 34, Alanine Aminotransferase (ALT/SGPT) 34, Total Creatine Kinase 38, Alkaline Phosphatase 110, Total Bilirubin 3.4 H, Total Protein 6.1 L, Albumin 2.9 L AMY BAZAN MD Apr 07, 2017 06:59
[2017-04-07] MEDS ORDERED: POTASSIUM CHLORIDE 10 MEQ SR TABLET PO ONE (07:00)
[2017-04-07 07:44] LABS: MAGNESIUM LEVEL 1.1 MG/DL (1.8-2.4)
[2017-04-07] MEDS: PANTOPRAZOLE 40MG INJ (PROTONIX) (C9113) IV SCH (08:14)
[2017-04-07] MEDS: MAG SULF 1GM/100ML (MAG RUN) 1 GM in APPROPRIATE DILUENT 1 EA IV SCH ×2 (11:41→12:50)
[2017-04-08 04:00] VITALS: BP 104/53
[2017-04-08 04:18] LABS: ALBUMIN 3.2 GM/DL (3.2-5.2); ALKALINE PHOSPHATASE 114 U/L (45-117); ALT/SGPT 33 U/L (12-78); ANION GAP 8 MEQ/L (8-16); AST/SGOT 33 U/L (15-37); BILIRUBIN,TOTAL 3.1 MG/DL (0.2-1.0); BLOOD UREA NITROGEN 18 MG/DL (7-18); CALCIUM LEVEL 8.5 MG/DL (8.8-10.2); CARBON DIOXIDE LEVEL 30 MEQ/L (21-32); CHLORIDE LEVEL 97 MEQ/L (98-107); GLOMERULAR FILTRATION RATE > 60.0 (>39); GLUCOSE, FASTING 150 MG/DL (83-110); MAGNESIUM LEVEL 1.5 MG/DL (1.8-2.4); MEAN CORPUSCULAR HEMOGLOBIN 33.4 pg (27.0-33.0); MEAN CORPUSCULAR VOLUME 87.7 fl (80.0-96.0); POTASSIUM SERUM 3.5 MEQ/L (3.5-5.1); RED CELL DISTRIBUTION WIDTH 16.7 % (11.5-14.5); SODIUM LEVEL 135 MEQ/L (136-145); TOTAL PROTEIN 6.4 GM/DL (6.4-8.2); WHITE BLOOD COUNT 6.1 K/mm3 (4.0-10.0)
[2017-04-08 04:26] LABS: MEAN CORPUSCULAR HGB CONC 38.1 g/dl (32.0-36.5)
[2017-04-08] MEDS ORDERED: MAG SULF 1GM/100ML (MAG RUN) 1 GM in APPROPRIATE DILUENT 1 EA IV ONE (05:00)
[2017-04-08] MEDS: METOPROLOL TART 25 MG TABLET PO SCH ×3 (06:50→18:01)
[2017-04-08 08:00] VITALS: BP 111/53
--- NOTE | 2017-04-08 08:36 | IPNPDOC ---
Subjective Date Seen The patient was seen on 04/08/17. Subjective Chief Complaint/HPI The patient is a 72-year-old female admitted with a reason for visit of Severe Anemia. General: Denies: ROS Unobtainable, Chills, Night Sweats, Fatigue, Malaise, Normal Appetite, Other Symptoms Constitutional: Denies: Chills, Fever, Malaise, Night Sweats, Weakness, Fatigue , Weight Loss, Lethargy, Other Eyes: Denies: Pain, Vision change, Conjunctivae inflammation, Eyelid inflammation, Redness, Other ENT: Denies: Head Aches, Ear Pain, Dysphagia, Sinus Congestion, Post Nasal Drip , Sore Throat, Epistaxis, Other Symptoms Skin: Denies: Rash, Lesions, Jaundice, Bruising, Itching, Dry, Breakdown, Nail Changes, Other Pulmonary: Reports: Dyspnea (dyspnea on exertion), Denies: Cough, Pleuritic Chest Pain, Other Symptoms Cardiovascular: Denies: Chest Pain, Palpitations, Orthopnea, Paroxysmal Noc. Dyspnea, Edema, Lt Headedness, Other Symptoms Gastrointestinal: Denies: Nausea, Vomiting, Abdominal Pain, Diarrhea, Constipation, Melena, Hematochezia, Other Symptoms Genitourinary: Denies: Dysuria, Frequency, Incontinence, Hematuria, Retention, Other Symptoms Hematologic: Denies: Bruising, Bleeding Excessively, Petecchia, Purpura, Enlarged Lymph Nodes, Other Hematologic Objective Physical Examination General Exam: Positive: Alert, Cooperative, No Acute Distress, Other (frail, elderly) Eye Exam: Positive: Conjunctiva & lids normal, EOMI, Negative: Sclera icteric ENT Exam: Positive: Mucous membr. moist/pink Chest Exam: Positive: Clear to auscultation, Normal air movement, Negative: Rales, Rhonchi, Wheezing Heart Exam: Positive: Rate Normal, Irregular Rhythm, Normal S1, Normal S2, Murmurs (III/ systolic murmur) Telemetry: Positive: Sinus Abdomen Exam: Positive: Normal bowel sounds, Soft, Negative: Tenderness Extremity Exam: Negative: Edema Psych Exam: Positive: Oriented x 3 Assessment /Plan Problems (1) Thrombocytopenia Status: Acute Response to Treatment: Worse Discussed With: Patient Problem Specific Plan: Consult Specialist, Monitor Clinically, Repeat Labs Problem Text: Platelets 8000 today, transfusing 2 units irradiated platelets. Likely secondary to recent chemotherapy. No signs of bleeding. Continue to monitor. Heme/Onc consultation pending. (2) Pancytopenia due to chemotherapy Status: Acute Response to Treatment: Progressing Discussed With: Patient Problem Specific Plan: Consult Specialist (3) Severe anemia Problem Text: Negative guaiac. Severe anemia due to pancytopenia due to chemotherapy. s/p2 units of the PRBC. Not iron deficient Reticulocyte count low, related to chemotherapy continue to monitor - transfuse if hg<7. (4) Elevated troponin Problem Text: Likely due to demand ischemia. Troponin trended upwards, now falling. No chest pain, controlling heart rate as bp allows and transfused prbc. No role for cardiology consult. No role for lovenox/asa currently with thrombocytopenia and severe anemia (5) Respiratory distress Problem Text: Related to anemia, and atrial fibrillation, continue with oxygen and a blood transfusion as needed Apparently feeling better (6) HTN (hypertension) Status: Chronic Problem Text: not currently elevated (7) Hyperlipidemia Status: Chronic Problem Text: not on statin currently (8) Diabetes Status: Chronic Problem Specific Plan: Monitor Clinically (9) Lung cancer Status: Chronic Discussed With: Patient Problem Specific Plan: Consult Specialist Problem Text: States she has completed chemo and RT. Last chemo 03/26, last RT 05/02. (10) Atrial fibrillation with RVR Status: Acute Response to Treatment: Progressing Discussed With: Patient Problem Text: rate control - sinus rhythm today anemia likely a contributing factor Has had afib before according to patient, has seen Dr. Tilley no anti-coagulation given severe anemia and thrombocytopenia. Plan/VTE VTE Prophylaxis Ordered?: Yes (mechanical) VTE Exclusion Pharmacological: Bleeding Risk Plan IVF: Initiate Diet: Continue Current Activity: Continue Current Therapy: PT, OT Diagnostics: Repeat Labs in AM Anticipated Discharge: Home Heme/Onc consultation pending. Transfuse platelets today. Continue monitoring labs for severe thrombocytopenia and anemia. VS, I&O, 24H, Fishbone Vital Signs/I&O Vital Signs Date Time Temp Pulse Resp B/P (MAP) Pulse Ox O2 Delivery O2 Flow Rate FiO2 04/08/17 08:06 Room Air 04/08/17 06:50 88 106/52 04/08/17 04:00 97.9 18 96 04/06/17 12:00 3.0 I&O- Last 24 Hours up to 6 AM 04/08/17 06:00 Intake Total 1160 ml Output Total 1200 ml Balance -40 ml Laboratory Data 24H LABS Laboratory Tests 2 04/08/17 03:25: Anion Gap 8, Glomerular Filtration Rate > 60.0, Blood Urea Nitrogen 18, Creatinine 0.80, Sodium Level 135L, Potassium Level 3.5, Chloride Level 97L, Carbon Dioxide Level 30, Calcium Level 8.5L, Aspartate Amino Transf (AST/SGOT) 33, Alanine Aminotransferase (ALT/SGPT) 33, Alkaline Phosphatase 114, Total Bilirubin 3.1H, Total Protein 6.4, Albumin 3.2, Magnesium Level 1.5L, Albumin/ Globulin Ratio 1.00 CBC/BMP Laboratory Tests 04/08/17 03:25 Red Blood Count 2.25 L, Mean Corpuscular Volume 87.7, Mean Corpuscular Hemoglobin 33.4 H, Mean Corpuscular Hemoglobin Concent 38.1 H, Red Cell Distribution Width 16.7 H, Calcium Level 8.5 L, Aspartate Amino Transf (AST/SGOT ) 33, Alanine Aminotransferase (ALT/SGPT) 33, Alkaline Phosphatase 114, Total Bilirubin 3.1 H, Total Protein 6.4, Albumin 3.2 CARLA SY MD Apr 08, 2017 08:35
[2017-04-08] MEDS: PANTOPRAZOLE 40MG INJ (PROTONIX) (C9113) IV SCH (08:59)
[2017-04-08 12:00] VITALS: BP 109/55
[2017-04-08 15:15] VITALS: BP 112/54
--- NOTE | 2017-04-08 19:18 | CR ---
DATE OF CONSULTATION: REFERRING PHYSICIAN: Magdy Schultz MD REASON FOR CONSULTATION: Anemia and thrombocytopenia. 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 Currently undergoing concurrent chemotherapy radiation with carboplatin and Alimta. She has received four cycles so far. Most recent therapy was on 03/26/2017. I was asked to see Ms. Singh after she was admitted with fatigue and noted to have normocytic anemia and thrombocytopenia. Platelet count was down to 15,000 with a hemoglobin of 6.6, MCV of 90.2. She has been transfused platelets and packed red cells and she tells me that her fatigue has improved. She was also noted to have troponin leak likely demand ischemia from her anemia. She denies any fevers. PAST MEDICAL HISTORY: 1. Hypertension. 2. Hyperlipidemia. 3. Vitamin D deficiency. PAST SURGICAL HISTORY: Bilateral carpal tunnel release surgery. MEDICATIONS INCLUDE: - lisinopril - amlodipine - atorvastatin - glipizide - metoprolol - aspirin - vitamin D - Januvia ALLERGIES: No known drug allergies. SOCIAL HISTORY: Greater than 50 pack year history of tobacco use, quit in 2011. No alcohol. 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 She is . She has three children and grandchildren, as well as great grandchildren. FAMILY HISTORY: Her sister from complications of ovarian cancer. Her brother also had an unknown malignancy possibly liver cancer. PHYSICAL EXAMINATION: VITAL SIGNS: Pulse is 99. Blood pressure is 115/67, heart rate 99. HEENT: No pallor. Anicteric sclerae. Mucous membranes and pharynx is clear. The patient is lying in bed and she is comfortable. LUNGS: Clear bilaterally with no wheezes, rhonchi or rales. ABDOMEN: Soft. No hepatosplenomegaly or masses. HEART: Regular rate and rhythm. Normal S1 and S2. EXTREMITIES: No edema. LABS AND STUDIES: Platelet count is 10,000, hemoglobin is 8 with hematocrit of 21.7. IMPRESSION: 72-year-old female with stage III right upper lobe adenocarcinoma, currently undergoing concurrent radiation with carboplatin and Alimta completing cycle number four about 10 days ago, admitted for thrombocytopenia and normocytic anemia likely secondary to chemotherapy. RECOMMENDATION: 1. Transfuse platelets as needed above 15,000 or if bleeding 2. Will also recommend transfusion of packed red cells if the patient symptomatic to maintain a hemoglobin above 7.5. Cytopenia would likely improve in the next few days. She will followup in clinic after discharge. TIFF
[2017-04-08 20:00] VITALS: BP 105/51
[2017-04-08] MEDS ORDERED: SLF 3 ML SYR IV PRN (20:30)
[2017-04-08] MEDS: SLF 3 ML SYR IV SCH (22:00)
[2017-04-08 23:59] VITALS: BP 90/51
[2017-04-09 04:00] VITALS: BP 106/57
[2017-04-09] MEDS: METOPROLOL TART 25 MG TABLET PO SCH ×5 (05:26→23:34)
[2017-04-09] MEDS: SLF 3 ML SYR IV SCH ×3 (05:27→19:59)
[2017-04-09 07:30] VITALS: BP 106/55
[2017-04-09 07:41] LABS: MEAN CORPUSCULAR HEMOGLOBIN 31.4 pg (27.0-33.0); MEAN CORPUSCULAR HGB CONC 35.9 g/dl (32.0-36.5); MEAN CORPUSCULAR VOLUME 87.6 fl (80.0-96.0); RED CELL DISTRIBUTION WIDTH 15.9 % (11.5-14.5); WHITE BLOOD COUNT 7.6 K/mm3 (4.0-10.0)
--- NOTE | 2017-04-09 07:54 | IPNPDOC ---
Subjective Date Seen The patient was seen on 04/09/17. Subjective Chief Complaint/HPI The patient is a 72-year-old female admitted with a reason for visit of Severe Anemia. General: Denies: ROS Unobtainable, Chills, Night Sweats, Fatigue, Malaise, Normal Appetite, Other Symptoms Constitutional: Denies: Chills, Fever, Malaise, Night Sweats, Weakness, Fatigue , Weight Loss, Lethargy, Other Eyes: Denies: Pain, Vision change, Conjunctivae inflammation, Eyelid inflammation, Redness, Other ENT: Denies: Head Aches, Ear Pain, Dysphagia, Sinus Congestion, Post Nasal Drip , Sore Throat, Epistaxis, Other Symptoms Skin: Denies: Rash, Lesions, Jaundice, Bruising, Itching, Dry, Breakdown, Nail Changes, Other Pulmonary: Denies: Dyspnea, Cough, Pleuritic Chest Pain, Other Symptoms Cardiovascular: Denies: Chest Pain, Palpitations, Orthopnea, Paroxysmal Noc. Dyspnea, Edema, Lt Headedness, Other Symptoms Gastrointestinal: Denies: Nausea, Vomiting, Abdominal Pain, Diarrhea, Constipation, Melena, Hematochezia, Other Symptoms Genitourinary: Denies: Dysuria, Frequency, Incontinence, Hematuria, Retention, Other Symptoms Objective Physical Examination General Exam: Positive: Alert, Cooperative, No Acute Distress, Other (frail, elderly) Eye Exam: Positive: Conjunctiva & lids normal, EOMI, Negative: Sclera icteric ENT Exam: Positive: Mucous membr. moist/pink Chest Exam: Positive: Clear to auscultation, Normal air movement, Negative: Rales, Rhonchi, Wheezing Heart Exam: Positive: Rate Normal, Irregular Rhythm, Normal S1, Normal S2, Murmurs (III/ systolic murmur) Telemetry: Positive: Sinus Abdomen Exam: Positive: Normal bowel sounds, Soft, Negative: Tenderness Extremity Exam: Negative: Edema Psych Exam: Positive: Oriented x 3 Assessment /Plan Problems (1) Thrombocytopenia Status: Acute Response to Treatment: Improving Discussed With: Patient Problem Specific Plan: Consult Specialist, Monitor Clinically, Repeat Labs Problem Text: Labs pending. Received 2 units platelets yesterday - repeat platelet count 65. Transfuse to keep plt >15, heme/onc c/s appreciated. Likely secondary to recent chemotherapy. No signs of bleeding. Continue to monitor. (2) Pancytopenia due to chemotherapy Status: Acute Response to Treatment: Improving Discussed With: Patient Problem Specific Plan: Consult Specialist, Monitor Clinically, Repeat Labs (3) Severe anemia Status: Acute Response to Treatment: Improving Discussed With: Patient Problem Specific Plan: Consult Specialist, Monitor Clinically, Repeat Labs Problem Text: Negative guaiac. Severe anemia due to pancytopenia due to chemotherapy. s/p 4 units of PRBC. Not iron deficient Reticulocyte count low, related to chemotherapy continue to monitor - transfuse if hg<7.5. (4) Elevated troponin Problem Specific Plan: Monitor Clinically Problem Text: Likely due to demand ischemia. Troponin trended upwards, now falling. No chest pain, controlling heart rate as bp allows and transfused prbc. No role for cardiology consult. No role for lovenox/asa currently with thrombocytopenia and severe anemia (5) Respiratory distress Status: Resolved Discussed With: Patient Problem Text: Related to anemia, and atrial fibrillation, continue with oxygen and a blood transfusion as needed Feeling better today. (6) HTN (hypertension) Status: Chronic Discussed With: Patient Problem Specific Plan: Monitor Clinically Problem Text: not currently elevated (7) Hyperlipidemia Status: Chronic Problem Text: not on statin currently (8) Diabetes Status: Chronic Problem Specific Plan: Monitor Clinically (9) Lung cancer Status: Chronic Discussed With: Patient Problem Specific Plan: Consult Specialist Problem Text: States she has completed chemo and RT. Last chemo 03/26, last RT 05/02. (10) Atrial fibrillation with RVR Status: Acute Response to Treatment: Progressing Discussed With: Patient Problem Text: rate control - sinus rhythm today anemia likely a contributing factor Has had afib before according to patient, has seen Dr. Tilley no anti-coagulation given severe anemia and thrombocytopenia. Plan/VTE VTE Prophylaxis Ordered?: Yes (mechanical) VTE Exclusion Pharmacological: Bleeding Risk Plan IVF: Initiate Diet: Continue Current Activity: Continue Current Therapy: PT, OT Diagnostics: Repeat Labs in AM Anticipated Discharge: Home Continue to monitor CBC; transfuse for Hgb <7.5, plt <15K VS, I&O, 24H, Fishbone Vital Signs/I&O Vital Signs Date Time Temp Pulse Resp B/P (MAP) Pulse Ox O2 Delivery O2 Flow Rate FiO2 04/09/17 05:26 96 108/80 04/09/17 04:00 98.0 18 95 Room Air 04/06/17 12:00 3.0 I&O- Last 24 Hours up to 6 AM 04/09/17 06:00 Intake Total 1648 ml Output Total 1400 ml Balance 248 ml Laboratory Data 24H LABS Laboratory Tests 2 04/09/17 07:31: CBC/BMP Laboratory Tests 04/08/17 12:32 04/08/17 21:07 CARLA SY MD Apr 09, 2017 07:54
[2017-04-09] MEDS: PANTOPRAZOLE 40MG INJ (PROTONIX) (C9113) IV SCH (08:06)
[2017-04-09 08:09] LABS: ALBUMIN 3.4 GM/DL (3.2-5.2); ALBUMIN/GLOBULIN RATIO 0.89 (1.00-1.93); ALKALINE PHOSPHATASE 128 U/L (45-117); ALT/SGPT 32 U/L (12-78); ANION GAP 7 MEQ/L (8-16); AST/SGOT 32 U/L (15-37); BILIRUBIN,TOTAL 3.3 MG/DL (0.2-1.0); BLOOD UREA NITROGEN 14 MG/DL (7-18); CALCIUM LEVEL 8.7 MG/DL (8.8-10.2); CARBON DIOXIDE LEVEL 29 MEQ/L (21-32); CHLORIDE LEVEL 95 MEQ/L (98-107); CREATININE FOR GFR 0.75 MG/DL (0.55-1.02); GLOMERULAR FILTRATION RATE > 60.0 (>39); GLUCOSE, FASTING 188 MG/DL (83-110); MAGNESIUM LEVEL 1.5 MG/DL (1.8-2.4); POTASSIUM SERUM 2.9 MEQ/L (3.5-5.1); SODIUM LEVEL 131 MEQ/L (136-145); TOTAL PROTEIN 7.2 GM/DL (6.4-8.2)
[2017-04-09] MEDS ORDERED: MAG SULF 1GM/100ML (MAG RUN) 1 GM in APPROPRIATE DILUENT 1 EA IV ONE (09:30)
[2017-04-09] MEDS ORDERED: POTASSIUM CHLORIDE 10 MEQ SR TABLET PO ONE (09:30)
[2017-04-09 12:00] VITALS: BP 125/56
[2017-04-09 16:00] VITALS: BP 109/54
[2017-04-09 19:49] VITALS: BP 126/58
[2017-04-09 23:28] VITALS: BP 120/60
[2017-04-10] VITALS (8 sets, daily range): BP systolic 92–124; BP diastolic 51–69
[2017-04-10] MEDS: CEPACOL LOZENGE PO PRN ×2 (04:37→17:48)
[2017-04-10] MEDS: SLF 3 ML SYR IV SCH ×3 (04:37→23:46)
[2017-04-10 05:01] LABS: MEAN CORPUSCULAR HEMOGLOBIN 32.3 pg (27.0-33.0); MEAN CORPUSCULAR VOLUME 86.5 fl (80.0-96.0); WHITE BLOOD COUNT 7.2 K/mm3 (4.0-10.0)
[2017-04-10 05:03] LABS: MEAN CORPUSCULAR HGB CONC 37.3 g/dl (32.0-36.5)
[2017-04-10 05:14] LABS: ALBUMIN/GLOBULIN RATIO 0.81 (1.00-1.93); ALKALINE PHOSPHATASE 117 U/L (45-117); ALT/SGPT 27 U/L (12-78); ANION GAP 6 MEQ/L (8-16); AST/SGOT 25 U/L (15-37); BILIRUBIN,TOTAL 2.4 MG/DL (0.2-1.0); BLOOD UREA NITROGEN 13 MG/DL (7-18); CALCIUM LEVEL 8.6 MG/DL (8.8-10.2); CARBON DIOXIDE LEVEL 31 MEQ/L (21-32); CHLORIDE LEVEL 99 MEQ/L (98-107); CREATININE FOR GFR 0.81 MG/DL (0.55-1.02); GLOMERULAR FILTRATION RATE > 60.0 (>39); GLUCOSE, FASTING 158 MG/DL (83-110); MAGNESIUM LEVEL 1.3 MG/DL (1.8-2.4); POTASSIUM SERUM 3.3 MEQ/L (3.5-5.1); SODIUM LEVEL 136 MEQ/L (136-145); TOTAL PROTEIN 6.7 GM/DL (6.4-8.2)
[2017-04-10] MEDS ORDERED: POTASSIUM CHLORIDE 10 MEQ SR TABLET PO ONE (05:30)
[2017-04-10] MEDS: MAG SULF 1GM/100ML (MAG RUN) 1 GM in APPROPRIATE DILUENT 1 EA IV SCH ×2 (05:53→06:42)
[2017-04-10] MEDS: METOPROLOL TART 25 MG TABLET PO SCH ×4 (05:53→23:49)
[2017-04-10] MEDS: PANTOPRAZOLE 40MG INJ (PROTONIX) (C9113) IV SCH (07:50)
--- NOTE | 2017-04-10 08:58 | IPNPDOC ---
Subjective Date Seen The patient was seen on 04/10/17. Subjective Chief Complaint/HPI The patient is a 72-year-old female admitted with a reason for visit of Severe Anemia. General: Denies: ROS Unobtainable, Chills, Night Sweats, Fatigue, Malaise, Normal Appetite, Other Symptoms Constitutional: Denies: Chills, Fever, Malaise, Night Sweats, Weakness, Fatigue , Weight Loss, Lethargy, Other Eyes: Denies: Pain, Vision change, Conjunctivae inflammation, Eyelid inflammation, Redness, Other ENT: Denies: Head Aches, Ear Pain, Dysphagia, Sinus Congestion, Post Nasal Drip , Sore Throat, Epistaxis, Other Symptoms Skin: Denies: Rash, Lesions, Jaundice, Bruising, Itching, Dry, Breakdown, Nail Changes, Other Pulmonary: Denies: Dyspnea, Cough, Pleuritic Chest Pain, Other Symptoms Cardiovascular: Denies: Chest Pain, Palpitations, Orthopnea, Paroxysmal Noc. Dyspnea, Edema, Lt Headedness, Other Symptoms Gastrointestinal: Denies: Nausea, Vomiting, Abdominal Pain, Diarrhea, Constipation, Melena, Hematochezia, Other Symptoms Genitourinary: Denies: Dysuria, Frequency, Incontinence, Hematuria, Retention, Other Symptoms Objective Physical Examination General Exam: Positive: Alert, Cooperative, No Acute Distress, Other (frail, elderly) Eye Exam: Positive: Conjunctiva & lids normal, EOMI, Negative: Sclera icteric ENT Exam: Positive: Mucous membr. moist/pink Chest Exam: Positive: Clear to auscultation, Normal air movement, Negative: Rales, Rhonchi, Wheezing Heart Exam: Positive: Rate Normal, Irregular Rhythm, Normal S1, Normal S2, Murmurs (III/ systolic murmur) Telemetry: Positive: Atrial fibrillation Abdomen Exam: Positive: Normal bowel sounds, Soft, Negative: Tenderness Extremity Exam: Negative: Edema Psych Exam: Positive: Oriented x 3 Assessment /Plan Problems (1) Thrombocytopenia Status: Acute Response to Treatment: Improving Discussed With: Patient Problem Specific Plan: Consult Specialist, Monitor Clinically, Repeat Labs Problem Text: Transfuse to keep plt >15, heme/onc c/s appreciated. Likely secondary to recent chemotherapy. No signs of bleeding. Continue to monitor. (2) Pancytopenia due to chemotherapy Status: Acute Response to Treatment: Improving Discussed With: Patient Problem Specific Plan: Consult Specialist, Monitor Clinically, Repeat Labs (3) Severe anemia Status: Acute Response to Treatment: Improving Discussed With: Patient Problem Specific Plan: Consult Specialist, Monitor Clinically, Repeat Labs Problem Text: Negative guaiac. Severe anemia due to pancytopenia due to chemotherapy. s/p 4 units of PRBC. Not iron deficient Reticulocyte count low, related to chemotherapy continue to monitor - transfuse if hg<7.5. (4) Elevated troponin Problem Specific Plan: Monitor Clinically Problem Text: Likely due to demand ischemia. Troponin trended upwards, now falling. No chest pain, controlling heart rate as bp allows and transfused prbc. No role for cardiology consult. No role for lovenox/asa currently with thrombocytopenia and severe anemia (5) Respiratory distress Status: Resolved Discussed With: Patient Problem Text: Related to anemia, and atrial fibrillation, continue with oxygen and a blood transfusion as needed Feeling better today. (6) HTN (hypertension) Status: Chronic Discussed With: Patient Problem Specific Plan: Monitor Clinically Problem Text: not currently elevated (7) Hyperlipidemia Status: Chronic Problem Text: not on statin currently (8) Diabetes Status: Chronic Problem Specific Plan: Monitor Clinically (9) Lung cancer Status: Chronic Discussed With: Patient Problem Specific Plan: Consult Specialist Problem Text: States she has completed chemo and RT. Last chemo 03/26, last RT 05/02. (10) Atrial fibrillation with RVR Status: Chronic Response to Treatment: Progressing Discussed With: Patient Problem Text: rate controlled anemia likely a contributing factor Has had afib before according to patient, has seen Dr. Tilley no anti-coagulation given severe anemia and thrombocytopenia. Plan/VTE VTE Prophylaxis Ordered?: Yes (mechanical) VTE Exclusion Pharmacological: Bleeding Risk Plan IVF: Initiate Diet: Continue Current Activity: Continue Current Therapy: PT, OT Diagnostics: Repeat Labs in AM Anticipated Discharge: Home VS, I&O, 24H, [facility] Vital Signs/I&O Vital Signs Date Time Temp Pulse Resp B/P (MAP) Pulse Ox O2 Delivery O2 Flow Rate FiO2 04/10/17 07:30 98.2 92 20 92/51 (65) 97 Room Air 04/06/17 12:00 3.0 I&O- Last 24 Hours up to 6 AM 04/10/17 06:00 Intake Total 540 ml Output Total 1600 ml Balance -1060 ml Laboratory Data 24H LABS Laboratory Tests 2 04/10/17 04:44: Anion Gap 6L, Glomerular Filtration Rate > 60.0, Blood Urea Nitrogen 13, Creatinine 0.81, Sodium Level 136, Potassium Level 3.3L, Chloride Level 99, Carbon Dioxide Level 31, Calcium Level 8.6L, Aspartate Amino Transf (AST/SGOT) 25, Alanine Aminotransferase (ALT/SGPT) 27, Alkaline Phosphatase 117, Total Bilirubin 2.4H, Total Protein 6.7, Albumin 3.0L, Magnesium Level 1.3L, Albumin/ Globulin Ratio 0.81L CBC/BMP Laboratory Tests 04/10/17 04:44 Red Blood Count 2.74 L, Mean Corpuscular Volume 86.5, Mean Corpuscular Hemoglobin 32.3, Mean Corpuscular Hemoglobin Concent 37.3 H, Red Cell Distribution Width 16.0 H, Calcium Level 8.6 L, Aspartate Amino Transf (AST/SGOT ) 25, Alanine Aminotransferase (ALT/SGPT) 27, Alkaline Phosphatase 117, Total Bilirubin 2.4 H, Total Protein 6.7, Albumin 3.0 L Microbiology Microbiology 04/10/17 Stool Occult Blood (ROSE), Received Pending CARLA SY MD Apr 10, 2017 08:58
[2017-04-10 18:49] LABS: ANION GAP 6 MEQ/L (8-16); BLOOD UREA NITROGEN 13 MG/DL (7-18); CALCIUM LEVEL 8.8 MG/DL (8.8-10.2); CARBON DIOXIDE LEVEL 28 MEQ/L (21-32); CHLORIDE LEVEL 97 MEQ/L (98-107); CREATININE FOR GFR 0.83 MG/DL (0.55-1.02); GLOMERULAR FILTRATION RATE > 60.0 (>39); GLUCOSE, FASTING 175 MG/DL (83-110); MAGNESIUM LEVEL 1.8 MG/DL (1.8-2.4); POTASSIUM SERUM 3.4 MEQ/L (3.5-5.1); SODIUM LEVEL 131 MEQ/L (136-145)
[2017-04-11 03:02] LABS: MEAN CORPUSCULAR HEMOGLOBIN 30.8 pg (27.0-33.0); MEAN CORPUSCULAR HGB CONC 35.1 g/dl (32.0-36.5); MEAN CORPUSCULAR VOLUME 87.7 fl (80.0-96.0); WHITE BLOOD COUNT 6.3 K/mm3 (4.0-10.0)
[2017-04-11 03:13] LABS: ALBUMIN/GLOBULIN RATIO 0.86 (1.00-1.93); ALKALINE PHOSPHATASE 115 U/L (45-117); ALT/SGPT 24 U/L (12-78); ANION GAP 4 MEQ/L (8-16); AST/SGOT 20 U/L (15-37); BILIRUBIN,TOTAL 1.5 MG/DL (0.2-1.0); BLOOD UREA NITROGEN 12 MG/DL (7-18); CALCIUM LEVEL 8.5 MG/DL (8.8-10.2); CARBON DIOXIDE LEVEL 32 MEQ/L (21-32); CHLORIDE LEVEL 100 MEQ/L (98-107); GLOMERULAR FILTRATION RATE > 60.0 (>39); GLUCOSE, FASTING 153 MG/DL (83-110); MAGNESIUM LEVEL 1.6 MG/DL (1.8-2.4); POTASSIUM SERUM 3.4 MEQ/L (3.5-5.1); SODIUM LEVEL 136 MEQ/L (136-145); TOTAL PROTEIN 6.5 GM/DL (6.4-8.2)
[2017-04-11] MEDS ORDERED: MAG SULF 1GM/100ML (MAG RUN) 1 GM in APPROPRIATE DILUENT 1 EA IV ONE (03:45)
[2017-04-11] MEDS ORDERED: POTASSIUM CHLORIDE 10 MEQ SR TABLET PO ONE (03:45)
[2017-04-11 04:11] VITALS: BP 117/59
[2017-04-11] MEDS: SLF 3 ML SYR IV SCH ×3 (05:19→21:17)
[2017-04-11] MEDS: METOPROLOL TART 25 MG TABLET PO SCH ×3 (05:20→18:37)
[2017-04-11 07:15] VITALS: BP 136/65
[2017-04-11] MEDS: PANTOPRAZOLE 40MG INJ (PROTONIX) (C9113) IV SCH (09:04)
--- NOTE | 2017-04-11 10:46 | IPNPDOC ---
Subjective Date Seen The patient was seen on 04/11/17. Subjective Chief Complaint/HPI The patient is a 72-year-old female admitted with a reason for visit of Severe Anemia. General: Denies: ROS Unobtainable, Chills, Night Sweats, Fatigue, Malaise, Normal Appetite, Other Symptoms Constitutional: Denies: Chills, Fever, Malaise, Night Sweats, Weakness, Fatigue , Weight Loss, Lethargy, Other Eyes: Denies: Pain, Vision change, Conjunctivae inflammation, Eyelid inflammation, Redness, Other ENT: Denies: Head Aches, Ear Pain, Dysphagia, Sinus Congestion, Post Nasal Drip , Sore Throat, Epistaxis, Other Symptoms Skin: Denies: Rash, Lesions, Jaundice, Bruising, Itching, Dry, Breakdown, Nail Changes, Other Pulmonary: Denies: Dyspnea, Cough, Pleuritic Chest Pain, Other Symptoms Cardiovascular: Denies: Chest Pain, Palpitations, Orthopnea, Paroxysmal Noc. Dyspnea, Edema, Lt Headedness, Other Symptoms Gastrointestinal: Denies: Nausea, Vomiting, Abdominal Pain, Diarrhea, Constipation, Melena, Hematochezia, Other Symptoms Genitourinary: Denies: Dysuria, Frequency, Incontinence, Hematuria, Retention, Other Symptoms Objective Physical Examination General Exam: Positive: Alert, Cooperative, No Acute Distress, Other (frail, elderly) Eye Exam: Positive: Conjunctiva & lids normal, EOMI, Negative: Sclera icteric ENT Exam: Positive: Mucous membr. moist/pink Chest Exam: Positive: Clear to auscultation, Normal air movement, Negative: Rales, Rhonchi, Wheezing Heart Exam: Positive: Rate Normal, Irregular Rhythm, Normal S1, Normal S2, Murmurs (III/ systolic murmur) Telemetry: Positive: Atrial fibrillation Abdomen Exam: Positive: Normal bowel sounds, Soft, Negative: Tenderness Extremity Exam: Negative: Edema Psych Exam: Positive: Oriented x 3 Assessment /Plan Problems (1) Thrombocytopenia Status: Acute Response to Treatment: Improving Discussed With: Patient Problem Specific Plan: Consult Specialist, Monitor Clinically, Repeat Labs Problem Text: Transfuse to keep plt >15, heme/onc c/s appreciated. Likely secondary to recent chemotherapy. No signs of bleeding. Continue to monitor. (2) Pancytopenia due to chemotherapy Status: Acute Response to Treatment: Improving Discussed With: Patient Problem Specific Plan: Consult Specialist, Monitor Clinically, Repeat Labs (3) Severe anemia Status: Acute Response to Treatment: Improving Discussed With: Patient Problem Specific Plan: Consult Specialist, Monitor Clinically, Repeat Labs Problem Text: Negative guaiac. Severe anemia due to pancytopenia due to chemotherapy. s/p 4 units of PRBC. Not iron deficient Reticulocyte count low, related to chemotherapy continue to monitor - transfuse if hg<7.5. (4) Elevated troponin Problem Specific Plan: Monitor Clinically Problem Text: Likely due to demand ischemia. Troponin trended upwards, now falling. No chest pain, controlling heart rate as bp allows and transfused prbc. No role for cardiology consult. No role for lovenox/asa currently with thrombocytopenia and severe anemia (5) Respiratory distress Status: Resolved Discussed With: Patient Problem Text: Related to anemia, and atrial fibrillation, continue with oxygen and a blood transfusion as needed Feeling better today. (6) HTN (hypertension) Status: Chronic Discussed With: Patient Problem Specific Plan: Monitor Clinically Problem Text: not currently elevated (7) Hyperlipidemia Status: Chronic Problem Text: not on statin currently (8) Diabetes Status: Chronic Problem Specific Plan: Monitor Clinically (9) Lung cancer Status: Chronic Discussed With: Patient Problem Specific Plan: Consult Specialist Problem Text: States she has completed chemo and RT. Last chemo 03/26, last RT 05/02. (10) Atrial fibrillation with RVR Status: Chronic Response to Treatment: Progressing Discussed With: Patient Problem Text: rate controlled anemia likely a contributing factor Has had afib before according to patient, has seen Dr. Tilley no anti-coagulation given severe anemia and thrombocytopenia. Plan/VTE VTE Prophylaxis Ordered?: Yes (mechanical) VTE Exclusion Pharmacological: Bleeding Risk Plan IVF: Initiate Diet: Continue Current Activity: Continue Current Therapy: PT, OT Diagnostics: Repeat Labs in AM Anticipated Discharge: Home H/H slowly trending down but stable. Platelets similarly slowly trending down, but stable. Transfer to floor, continue to trend CBC. VS, I&O, 24H, Fishbone Vital Signs/I&O Vital Signs Date Time Temp Pulse Resp B/P (MAP) Pulse Ox O2 Delivery O2 Flow Rate FiO2 04/11/17 07:15 99.0 83 20 136/65 (88) 99 Room Air 04/06/17 12:00 3.0 I&O- Last 24 Hours up to 6 AM 04/11/17 06:00 Intake Total 980 ml Output Total 1100 ml Balance -120 ml Laboratory Data 24H LABS Laboratory Tests 2 04/10/17 18:14: Anion Gap 6L, Glomerular Filtration Rate > 60.0, Blood Urea Nitrogen 13, Creatinine 0.83, Sodium Level 131L, Potassium Level 3.4L, Chloride Level 97L, Carbon Dioxide Level 28, Calcium Level 8.8, Magnesium Level 1.8 04/11/17 02:44: Anion Gap 4L, Glomerular Filtration Rate > 60.0, Blood Urea Nitrogen 12, Creatinine 0.80, Sodium Level 136, Potassium Level 3.4L, Chloride Level 100, Carbon Dioxide Level 32, Calcium Level 8.5L, Magnesium Level 1.6L, Aspartate Amino Transf (AST/SGOT) 20, Alanine Aminotransferase (ALT/SGPT) 24, Alkaline Phosphatase 115, Total Bilirubin 1.5H, Total Protein 6.5, Albumin 3.0L, Albumin/ Globulin Ratio 0.86L CBC/BMP Laboratory Tests 04/10/17 18:14 Calcium Level 8.8 04/11/17 02:44 Calcium Level 8.5 L, Red Blood Count 2.75 L, Mean Corpuscular Volume 87.7, Mean Corpuscular Hemoglobin 30.8, Mean Corpuscular Hemoglobin Concent 35.1, Red Cell Distribution Width 16.0 H, Aspartate Amino Transf (AST/SGOT) 20, Alanine Aminotransferase (ALT/SGPT) 24, Alkaline Phosphatase 115, Total Bilirubin 1.5 H , Total Protein 6.5, Albumin 3.0 L Microbiology Microbiology 04/10/17 Stool Occult Blood (ROSE) - Final, Complete CARLA SY MD Apr 11, 2017 10:46
[2017-04-11 14:00] VITALS: BP 121/67
[2017-04-11 22:00] VITALS: BP 104/59
[2017-04-12] MEDS: CEPACOL LOZENGE PO PRN (02:45)
[2017-04-12] MEDS: METOPROLOL TART 25 MG TABLET PO SCH ×4 (05:42→17:58)
[2017-04-12] MEDS: SLF 3 ML SYR IV SCH ×3 (05:43→21:49)
[2017-04-12 06:00] VITALS: BP 115/57
[2017-04-12 06:53] LABS: ALBUMIN 2.8 GM/DL (3.2-5.2); ALBUMIN/GLOBULIN RATIO 0.76 (1.00-1.93); ALKALINE PHOSPHATASE 120 U/L (45-117); ALT/SGPT 21 U/L (12-78); ANION GAP 8 MEQ/L (8-16); AST/SGOT 16 U/L (15-37); BILIRUBIN,TOTAL 1.1 MG/DL (0.2-1.0); BLOOD UREA NITROGEN 12 MG/DL (7-18); CALCIUM LEVEL 8.6 MG/DL (8.8-10.2); CARBON DIOXIDE LEVEL 26 MEQ/L (21-32); CHLORIDE LEVEL 99 MEQ/L (98-107); CREATININE FOR GFR 0.74 MG/DL (0.55-1.02); GLOMERULAR FILTRATION RATE > 60.0 (>39); GLUCOSE, FASTING 163 MG/DL (83-110); MAGNESIUM LEVEL 1.5 MG/DL (1.8-2.4); POTASSIUM SERUM 3.7 MEQ/L (3.5-5.1); SODIUM LEVEL 133 MEQ/L (136-145); TOTAL PROTEIN 6.5 GM/DL (6.4-8.2)
[2017-04-12 07:22] LABS: MEAN CORPUSCULAR HEMOGLOBIN 30.9 pg (27.0-33.0); MEAN CORPUSCULAR HGB CONC 35.1 g/dl (32.0-36.5); MEAN CORPUSCULAR VOLUME 87.9 fl (80.0-96.0); WHITE BLOOD COUNT 7.6 K/mm3 (4.0-10.0)
[2017-04-12] MEDS: PANTOPRAZOLE 40MG INJ (PROTONIX) (C9113) IV SCH (08:05)
[2017-04-12] MEDS ORDERED: MAG SULF 1GM/100ML (MAG RUN) 1 GM in APPROPRIATE DILUENT 1 EA IV ONE (08:15)
--- NOTE | 2017-04-12 09:34 | IPNPDOC ---
Subjective Date Seen The patient was seen on 04/12/17. Subjective Chief Complaint/HPI The patient is a 72-year-old female admitted with a reason for visit of Severe Anemia. General: Denies: ROS Unobtainable, Chills, Night Sweats, Fatigue, Malaise, Normal Appetite, Other Symptoms Constitutional: Denies: Chills, Fever, Malaise, Night Sweats, Weakness, Fatigue , Weight Loss, Lethargy, Other Eyes: Denies: Pain, Vision change, Conjunctivae inflammation, Eyelid inflammation, Redness, Other ENT: Denies: Head Aches, Ear Pain, Dysphagia, Sinus Congestion, Post Nasal Drip , Sore Throat, Epistaxis, Other Symptoms Skin: Denies: Rash, Lesions, Jaundice, Bruising, Itching, Dry, Breakdown, Nail Changes, Other Pulmonary: Denies: Dyspnea, Cough, Pleuritic Chest Pain, Other Symptoms Cardiovascular: Denies: Chest Pain, Palpitations, Orthopnea, Paroxysmal Noc. Dyspnea, Edema, Lt Headedness, Other Symptoms Gastrointestinal: Denies: Nausea, Vomiting, Abdominal Pain, Diarrhea, Constipation, Melena, Hematochezia, Other Symptoms Objective Physical Examination General Exam: Positive: Alert, Cooperative, No Acute Distress, Other (frail, elderly) Eye Exam: Positive: Conjunctiva & lids normal, EOMI, Negative: Sclera icteric ENT Exam: Positive: Mucous membr. moist/pink Chest Exam: Positive: Clear to auscultation, Normal air movement, Negative: Rales, Rhonchi, Wheezing Heart Exam: Positive: Rate Normal, Irregular Rhythm, Normal S1, Normal S2, Murmurs (III/ systolic murmur) Telemetry: Positive: Atrial fibrillation Abdomen Exam: Positive: Normal bowel sounds, Soft, Negative: Tenderness Extremity Exam: Negative: Edema Psych Exam: Positive: Oriented x 3 Assessment /Plan Problems (1) Thrombocytopenia Status: Acute Response to Treatment: Improving Discussed With: Patient Problem Specific Plan: Consult Specialist, Monitor Clinically, Repeat Labs Problem Text: Transfuse to keep plt >15, heme/onc c/s appreciated. Likely secondary to recent chemotherapy. No signs of bleeding. Continue to monitor. (2) Pancytopenia due to chemotherapy Status: Acute Response to Treatment: Improving Discussed With: Patient Problem Specific Plan: Consult Specialist, Monitor Clinically, Repeat Labs (3) Severe anemia Status: Acute Response to Treatment: Improving Discussed With: Patient Problem Specific Plan: Consult Specialist, Monitor Clinically, Repeat Labs Problem Text: Negative guaiac. Severe anemia due to pancytopenia due to chemotherapy. s/p 4 units of PRBC. Not iron deficient Reticulocyte count low, related to chemotherapy continue to monitor - transfuse if hg<7.5. (4) Elevated troponin Problem Specific Plan: Monitor Clinically Problem Text: Likely due to demand ischemia. Troponin trended upwards, now falling. No chest pain, controlling heart rate as bp allows and transfused prbc. No role for cardiology consult. No role for lovenox/asa currently with thrombocytopenia and severe anemia (5) Respiratory distress Status: Resolved Discussed With: Patient Problem Text: Related to anemia, and atrial fibrillation, continue with oxygen and a blood transfusion as needed Feeling better today. (6) HTN (hypertension) Status: Chronic Discussed With: Patient Problem Specific Plan: Monitor Clinically Problem Text: not currently elevated (7) Hyperlipidemia Status: Chronic Problem Text: not on statin currently (8) Diabetes Status: Chronic Problem Specific Plan: Monitor Clinically (9) Lung cancer Status: Chronic Discussed With: Patient Problem Specific Plan: Consult Specialist Problem Text: States she has completed chemo and RT. Last chemo 03/26, last RT 05/02. (10) Atrial fibrillation with RVR Status: Chronic Response to Treatment: Progressing Discussed With: Patient Problem Text: rate controlled anemia likely a contributing factor Has had afib before according to patient, has seen Dr. Tilley no anti-coagulation given severe anemia and thrombocytopenia. Plan/VTE VTE Prophylaxis Ordered?: Yes (mechanical) VTE Exclusion Pharmacological: Bleeding Risk Plan IVF: Initiate Diet: Continue Current Activity: Continue Current Therapy: PT, OT Diagnostics: Repeat Labs in AM Anticipated Discharge: Home VS, I&O, 24H, [facility] Vital Signs/I&O Vital Signs Date Time Temp Pulse Resp B/P (MAP) Pulse Ox O2 Delivery O2 Flow Rate FiO2 04/12/17 06:00 98.5 97 18 115/57 (76) 98 Room Air 04/06/17 12:00 3.0 I&O- Last 24 Hours up to 6 AM 04/12/17 05:59 Intake Total 1320 ml Output Total 675 ml Balance 645 ml Laboratory Data 24H LABS Laboratory Tests 2 04/11/17 11:00: Urine Appearance HAZY, Urine Color YELLOW, Urine pH 5.0, Urine Specific [place] 1.012, Urine Protein NEGATIVE, Urine Glucose (UA) NEGATIVE, Urine Ketones NEGATIVE, Urine Urobilinogen 2.0H, Urine Bilirubin NEGATIVE, Urine Leukocyte Esterase TRACEH, Urine Blood 2+H, Urine Nitrite NEGATIVE, Urine WBC (Auto) 43H, Urine RBC (Auto) 5H, Urine Hyaline Casts (Auto) 1, Urine Bacteria (Auto) 1+H, Urine Squamous Epithelial Cells 0, Urine Mucus (Auto) SMALL, Urine Sperm (Auto) 04/12/17 05:52: Anion Gap 8, Glomerular Filtration Rate > 60.0, Blood Urea Nitrogen 12, Creatinine 0.74, Sodium Level 133L, Potassium Level 3.7, Chloride Level 99, Carbon Dioxide Level 26, Calcium Level 8.6L, Aspartate Amino Transf (AST/SGOT) 16, Alanine Aminotransferase (ALT/SGPT) 21, Alkaline Phosphatase 120H, Total Bilirubin 1.1H, Total Protein 6.5, Albumin 2.8L, Magnesium Level 1.5L, Albumin/ Globulin Ratio 0.76L CBC/BMP Laboratory Tests 04/12/17 05:52 Red Blood Count 2.49 L, Mean Corpuscular Volume 87.9, Mean Corpuscular Hemoglobin 30.9, Mean Corpuscular Hemoglobin Concent 35.1, Red Cell Distribution Width 16.0 H, Calcium Level 8.6 L, Aspartate Amino Transf (AST/SGOT ) 16, Alanine Aminotransferase (ALT/SGPT) 21, Alkaline Phosphatase 120 H, Total Bilirubin 1.1 H, Total Protein 6.5, Albumin 2.8 L Microbiology Microbiology 04/10/17 Stool Occult Blood (ROSE) - Final, Complete 04/11/17 Urine Culture, Received Pending CARLA SY MD Apr 12, 2017 09:34
[2017-04-12 14:00] VITALS: BP 102/50
[2017-04-13] MEDS: METOPROLOL TART 25 MG TABLET PO SCH ×4 (00:58→16:50)
[2017-04-13] MEDS: SLF 3 ML SYR IV SCH ×3 (05:55→22:00)
[2017-04-13 06:00] VITALS: BP 113/54
[2017-04-13 06:30] LABS: MEAN CORPUSCULAR HEMOGLOBIN 31.1 pg (27.0-33.0); MEAN CORPUSCULAR HGB CONC 35.2 g/dl (32.0-36.5); MEAN CORPUSCULAR VOLUME 88.4 fl (80.0-96.0); RED CELL DISTRIBUTION WIDTH 16.4 % (11.5-14.5); WHITE BLOOD COUNT 7.2 K/mm3 (4.0-10.0)
[2017-04-13 06:51] LABS: ALBUMIN 2.9 GM/DL (3.2-5.2); ALBUMIN/GLOBULIN RATIO 0.73 (1.00-1.93); ALKALINE PHOSPHATASE 116 U/L (45-117); ALT/SGPT 19 U/L (12-78); ANION GAP 5 MEQ/L (8-16); AST/SGOT 12 U/L (15-37); BILIRUBIN,TOTAL 1.2 MG/DL (0.2-1.0); BLOOD UREA NITROGEN 9 MG/DL (7-18); CARBON DIOXIDE LEVEL 32 MEQ/L (21-32); CHLORIDE LEVEL 97 MEQ/L (98-107); CREATININE FOR GFR 0.84 MG/DL (0.55-1.02); GLOMERULAR FILTRATION RATE > 60.0 (>39); GLUCOSE, FASTING 166 MG/DL (83-110); MAGNESIUM LEVEL 1.5 MG/DL (1.8-2.4); POTASSIUM SERUM 3.6 MEQ/L (3.5-5.1); SODIUM LEVEL 134 MEQ/L (136-145); TOTAL PROTEIN 6.9 GM/DL (6.4-8.2)
[2017-04-13] MEDS: PANTOPRAZOLE 40MG INJ (PROTONIX) (C9113) IV SCH (09:02)
--- NOTE | 2017-04-13 11:06 | IPNPDOC ---
Subjective Date Seen The patient was seen on 04/13/17. Subjective Chief Complaint/HPI The patient is a 72-year-old female admitted with a reason for visit of Severe Anemia. General: Denies: ROS Unobtainable, Chills, Night Sweats, Fatigue, Malaise, Normal Appetite, Other Symptoms Constitutional: Denies: Chills, Fever, Malaise, Night Sweats, Weakness, Fatigue , Weight Loss, Lethargy, Other Eyes: Denies: Pain, Vision change, Conjunctivae inflammation, Eyelid inflammation, Redness, Other ENT: Denies: Head Aches, Ear Pain, Dysphagia, Sinus Congestion, Post Nasal Drip , Sore Throat, Epistaxis, Other Symptoms Skin: Denies: Rash, Lesions, Jaundice, Bruising, Itching, Dry, Breakdown, Nail Changes, Other Pulmonary: Denies: Dyspnea, Cough, Pleuritic Chest Pain, Other Symptoms Cardiovascular: Denies: Chest Pain, Palpitations, Orthopnea, Paroxysmal Noc. Dyspnea, Edema, Lt Headedness, Other Symptoms Gastrointestinal: Denies: Nausea, Vomiting, Abdominal Pain, Diarrhea, Constipation, Melena, Hematochezia, Other Symptoms Objective Physical Examination General Exam: Positive: Alert, Cooperative, No Acute Distress Eye Exam: Positive: Conjunctiva & lids normal, Negative: Sclera icteric ENT Exam: Positive: Mucous membr. moist/pink Chest Exam: Positive: Clear to auscultation, Normal air movement, Negative: Rales, Rhonchi, Wheezing Heart Exam: Positive: Rate Normal, Irregular Rhythm, Normal S1, Normal S2, Murmurs (III/ systolic murmur) Abdomen Exam: Positive: Normal bowel sounds, Soft, Negative: Tenderness Extremity Exam: Negative: Edema Psych Exam: Positive: Oriented x 3 Assessment /Plan Problems (1) Thrombocytopenia Status: Chronic Response to Treatment: Improving Discussed With: Patient Problem Specific Plan: Consult Specialist, Monitor Clinically, Repeat Labs Problem Text: Transfuse to keep plt >15, heme/onc c/s appreciated. Likely secondary to recent chemotherapy. No signs of bleeding. Continue to monitor. (2) Pancytopenia due to chemotherapy Status: Acute Response to Treatment: Improving Discussed With: Patient Problem Specific Plan: Consult Specialist, Monitor Clinically, Repeat Labs (3) Severe anemia Status: Acute Response to Treatment: Improving Discussed With: Patient Problem Specific Plan: Consult Specialist, Monitor Clinically, Repeat Labs Problem Text: Negative guaiac. Severe anemia due to pancytopenia due to chemotherapy. s/p 4 units of PRBC. Not iron deficient Reticulocyte count low, related to chemotherapy continue to monitor - slowly trending down - will transfuse 1 unit PRBC today. Follow up oncology. (4) Elevated troponin Problem Specific Plan: Monitor Clinically Problem Text: Likely due to demand ischemia. Troponin trended upwards, now falling. No chest pain, controlling heart rate as bp allows and transfused prbc. No role for cardiology consult. No role for lovenox/asa currently with thrombocytopenia and severe anemia (5) Respiratory distress Status: Resolved Discussed With: Patient Problem Text: Related to anemia, and atrial fibrillation, continue with oxygen and a blood transfusion as needed Feeling better today. (6) HTN (hypertension) Status: Chronic Discussed With: Patient Problem Specific Plan: Monitor Clinically Problem Text: not currently elevated (7) Hyperlipidemia Status: Chronic Problem Text: not on statin currently (8) Diabetes Status: Chronic Problem Specific Plan: Monitor Clinically (9) Lung cancer Status: Chronic Discussed With: Patient Problem Specific Plan: Consult Specialist Problem Text: States she has completed chemo and RT. Last chemo 03/26, last RT 05/02. (10) Atrial fibrillation with RVR Status: Chronic Response to Treatment: Progressing Discussed With: Patient Problem Text: rate controlled anemia likely a contributing factor Has had afib before according to patient, has seen Dr. Tilley no anti-coagulation given severe anemia and thrombocytopenia. Plan/VTE VTE Prophylaxis Ordered?: Yes (mechanical) VTE Exclusion Pharmacological: Bleeding Risk Plan IVF: Initiate Diet: Continue Current Activity: Continue Current Therapy: PT, OT Diagnostics: Repeat Labs in AM Anticipated Discharge: Home VS, I&O, 24H, Count [facility]cludes [facility] Vital Signs/I&O Vital Signs Date Time Temp Pulse Resp B/P (MAP) Pulse Ox O2 Delivery O2 Flow Rate FiO2 04/13/17 06:00 97.6 97 18 113/54 (73) 95 Room Air I&O- Last 24 Hours up to 6 AM 04/13/17 06:00 Intake Total 1440 ml Output Total 1400 ml Balance 40 ml Laboratory Data 24H LABS Laboratory Tests 2 04/13/17 06:04: Anion Gap 5L, Glomerular Filtration Rate > 60.0, Blood Urea Nitrogen 9, Creatinine 0.84, Sodium Level 134L, Potassium Level 3.6, Chloride Level 97L, Carbon Dioxide Level 32, Calcium Level 9.0, Aspartate Amino Transf (AST/SGOT) 12L, Alanine Aminotransferase (ALT/SGPT) 19, Alkaline Phosphatase 116, Total Bilirubin 1.2H, Total Protein 6.9, Albumin 2.9L, Magnesium Level 1.5L, Albumin/ Globulin Ratio 0.73L CBC/BMP Laboratory Tests 04/12/17 16:46 04/13/17 06:04 Red Blood Count 2.43 L, Mean Corpuscular Volume 88.4, Mean Corpuscular Hemoglobin 31.1, Mean Corpuscular Hemoglobin Concent 35.2, Red Cell Distribution Width 16.4 H, Calcium Level 9.0, Aspartate Amino Transf (AST/SGOT) 12 L, Alanine Aminotransferase (ALT/SGPT) 19, Alkaline Phosphatase 116, Total Bilirubin 1.2 H, Total Protein 6.9, Albumin 2.9 L Microbiology Microbiology 04/10/17 Stool Occult Blood (ROSE) - Final, Complete 04/11/17 Urine Culture - Final, Complete Klebsiella Pneumoniae CARLA SY MD Apr 13, 2017 11:06
[2017-04-13 14:00] VITALS: BP 125/60
[2017-04-13 22:00] VITALS: BP 108/57
[2017-04-14] MEDS: METOPROLOL TART 25 MG TABLET PO SCH ×3 (00:22→11:22)
[2017-04-14 06:00] VITALS: BP 127/75
[2017-04-14] MEDS: SLF 3 ML SYR IV SCH ×2 (06:22→13:50)
[2017-04-14 07:35] LABS: MEAN CORPUSCULAR HEMOGLOBIN 31.3 pg (27.0-33.0); MEAN CORPUSCULAR HGB CONC 35.1 g/dl (32.0-36.5); MEAN CORPUSCULAR VOLUME 89.2 fl (80.0-96.0); RED CELL DISTRIBUTION WIDTH 16.4 % (11.5-14.5); WHITE BLOOD COUNT 7.7 K/mm3 (4.0-10.0)
[2017-04-14] MEDS: PANTOPRAZOLE 40MG INJ (PROTONIX) (C9113) IV SCH (08:44)
[2017-04-14 11:21] VITALS: BP 110/51
[2017-04-14 11:22] VITALS: BP 110/51
[2017-04-14] MEDS: MAG SULF 1GM/100ML (MAG RUN) 1 GM in APPROPRIATE DILUENT 1 EA IV SCH ×2 (11:23→12:28)
[2017-04-14 14:00] VITALS: BP 117/57
--- NOTE | 2017-05-02 11:41 | DS.PDOC ---
Discharge Summary General Date of Admission Apr 05, 2017 at 23:26 Date of Discharge Apr 14, 2017 Discharge Summary PROCEDURES PERFORMED DURING STAY: [None]. DISCHARGE DIAGNOSES: 1. Right upper lobe lung adenocarcinoma - currently receiving chemo/RT 2. Pancytopenia secondary to chemotherapy 3. Severe anemia 4. Troponinemia 5. Respiratory distress 6. HTN 7. Hyperlipidemia 8. Diabetes 9. Afib/RVR COMPLICATIONS/CHIEF COMPLAINT: Severe Anemia. HOSPITAL COURSE: 72 yo female presents with shortness of breath, generalized lethargy after chemotherapy for lung adenocarcinoma found to be severely anemic and pancytopenic. Admitted for chemotherapy induced pancytopenia. Transfused platelets and PRBC. Heme/onc consulted for further assistance. DISCHARGE MEDICATIONS: Please see below. ALLERGIES: Please see below. PHYSICAL EXAMINATION ON DISCHARGE: VITAL SIGNS: Please see below. GENERAL: NAD, lying comfortably in bed HEENT: NC/AT, EOMI NECK: supple CARDIOVASCULAR EXAMINATION: +S1S2, RRR RESPIRATORY EXAMINATION: CTA B/L ABDOMINAL EXAMINATION: soft, NT, +BS EXTREMITIES: no edema PSYCHIATRIC EXAMINATION: AAOx3 LABORATORY DATA: Please see below. PROGNOSIS: Guarded ACTIVITY: [As tolerated]. DIET: 2 gram sodium, carb consistent, heart healthy DISCHARGE PLAN: DISPOSITION: 01 Home, Self-Care. DISCHARGE INSTRUCTIONS: 1. Follow up heme/onc as scheduled. 2. Follow up PCP as scheduled. ITEMS TO FOLLOWUP ON ON OUTPATIENT: 1. Repeat CBC DISCHARGE CONDITION: [Stable]. TIME SPENT ON DISCHARGE: Greater than 30 minutes. Discharge Medications Scheduled Metoprolol Succinate (Metoprolol Succinate ER) 100 Mg Tab, 100 MG PO DAILY, ( Reported) Allergies Coded Allergies: No Known Drug Allergy (Verified Allergy, Unknown, 09/11/16) CARLA SY MD May 02, 2017 11:41
== END 2017-04-14 17:40 | disposition home or self-care (01) | DRG 809 ==
LOC: M PCU 23:26 → M MS5PR 04-11 13:47
PROVIDERS: ADMIT Internal Medicine; ATTEND Internal Medicine
PROC: 30233N1 Transfusion of Nonautologous Red Blood Cells into Peripheral Vein, Percutaneous Approach (ICD-10-PCS; principal; 2017-04-06)
PROC: 30233R1 Transfusion of Nonautologous Platelets into Peripheral Vein, Percutaneous Approach (ICD-10-PCS; 2017-04-07)
DX: D61.810 Antineoplastic chemotherapy induced pancytopenia (principal); C34.11 Malignant neoplasm of upper lobe, right bronchus or lung; I24.8 Other forms of acute ischemic heart disease; I48.91 Unspecified atrial fibrillation; E11.9 Type 2 diabetes mellitus without complications; E78.5 Hyperlipidemia, unspecified; R06.00 Dyspnea, unspecified; D69.6 Thrombocytopenia, unspecified; R74.8 Abnormal levels of other serum enzymes; I10 Essential (primary) hypertension; E55.9 Vitamin D deficiency, unspecified; Z79.899 Other long term (current) drug therapy; Z87.891 Personal history of nicotine dependence

== ENCOUNTER → 2017-04-17 | Outpatient (CLI) | payer MEDICARE, OTHER ==
[~2017-04-17] MED LIST changes: +ATOR1TAB18 PO; -ATOR80TA59 PO; +ISOVUE-370 76% 100ML VIAL (Q9967) As Ordered ONE; +METO-209 PO; -METO1TAB33 PO; -PERC5TAB12 PO; +PERC5TAB6 PO
--- NOTE | 2017-04-17 11:21 | REP ---
CT ANGIO CHEST: TECHNIQUE: Axial contrast enhanced images from the thoracic inlet to the upper abdomen using 100 mL Isovue 370 intravenous contrast material with multiplanar reformations. COMPARISON: 09/27/2016 In a right lower lobe pulmonary artery, there is a small linear filling defect, which may represent a small old thrombus in a second order branch of the right lower lobe pulmonary artery. Otherwise, no pulmonary embolism is seen. There are moderate atherosclerotic calcifications of the thoracic aorta without evidence of dissection. There is no aneurysm. Scattered fibrotic changes are present in both lungs and there is right upper lobe consolidation present with a small amount of residual cavitating air and fluid in that right upper lobe. The appearance has improved since the prior study. There is adjacent right upper thoracic pleural thickening laterally. There is a small right pleural effusion. Calcified granulomas are seen in the right lower lobe. There are calcified lymph nodes in the mediastinum. In addition, there is a mildly enlarged subcarinal lymph node 1.3 cm in short axis dimension. This appears similar to the prior study. There is no pericardial effusion. The heart is normal in size. On the visualized portions of the upper abdomen, multiple calcified granulomas are again seen in the liver and spleen. There is bilateral adrenal gland thickening, which is stable. IMPRESSION: Improved cavitating air and fluid as well as surrounding consolidation in the right upper lobe. Small right effusion. Small focal filling defect in a second order branch of right lower lobe pulmonary artery may represent an old focal thrombus. No other evidence of pulmonary embolism. Mild subcarinal adenopathy. Signed by Enrico Dukes MD 04/17/2017 05:13 P
== END ==
LOC: M RAD 09:28
PROVIDERS: ATTEND Internal Medicine Medical Oncology
DX: C34.91 Malignant neoplasm of unspecified part of right bronchus or lung (principal)
CPT/HCPCS: 71275; Q9967

== ENCOUNTER → 2017-04-30 | Outpatient (CLI) | payer MEDICARE, OTHER ==
[~2017-04-30] MED LIST changes: -ATOR1TAB18 PO; +ATOR80TA59 PO; -ISOVUE-370 76% 100ML VIAL (Q9967) As Ordered ONE; -METO-209 PO; +METO1TAB33 PO; +PERC5TAB12 PO; -PERC5TAB6 PO
--- NOTE | 2017-05-02 15:41 | RADONC ---
RADIATION ONCOLOGY PROGRESS NOTE DATE: 04/30/2017 CHART NUMBER: [id number] DIAGNOSIS: Right lung cancer. STAGE: IIIA, [id number]. ECOG PERFORMANCE STATUS: 0. FOLLOWUP NOTE: Ms. Singh is a very pleasant 71-year-old white female with the diagnosis of what appears to be a stage IIIA, [id number] versus a stage IV, [id number], moderately differentiated adenocarcinoma of the right upper lobe who is presenting to us today for routine followup visit 1 month post completion of external beam radiation therapy. The patient reports that she is doing chemotherapy at the present time and is receiving her chemo cycles every 3 weeks. She reports that she has two more cycles of chemotherapy to undergo. She is being managed and followed closely by her medical oncologist. The patient's review of systems is noncontributory. She denies nausea, vomiting, fevers, chills, night sweats, diplopia, headaches, anxiety or depression, anorexia, weight loss, visual disturbances, chest pain, urinary or bowel difficulties, bone pain, or neurological problems. PHYSICAL EXAMINATION: The patient is a well-developed, well-nourished, female in no acute distress. HEENT exam is normocephalic, atraumatic. Extraocular movements are intact. There is no palpable cervical, supraclavicular, infraclavicular, axillary, or inguinal lymphadenopathy present. Lungs are clear to auscultation and percussion. Heart has a regular rate and rhythm. Abdomen is benign with no hepatosplenomegaly, masses, or tenderness. Skeletal examination reveals no tenderness to pressure or percussion of the bony skeleton. Extremities reveal no clubbing, cyanosis, or edema. Neurologic exam is grossly intact, as is the remainder of the physical examination. ASSESSMENT: The patient is clinically doing well at this point 1 month post completion of external beam radiation therapy. Since she is being followed and managed closely by her medical oncologist, I have scheduled her to see me again in 6 months for further followup. cc: MD Savi Ragland MD
== END ==
LOC: M ONCR 11:13
PROVIDERS: ATTEND Radiology Radiation Oncology
DX: C34.11 Malignant neoplasm of upper lobe, right bronchus or lung (principal)

== ENCOUNTER 2017-05-07 12:32 | Outpatient (CLI) | payer MEDICARE, OTHER ==
[~2017-05-07] VITALS: Ht 165.1 cm; Wt 70.6 kg
[~2017-05-07 12:32] MED LIST changes: +ACETAMINOPHEN TAB 650MG DOSE (2X325MG) PO SCH; +diphenhydrAMINE 25 MG CAP PO SCH
[2017-05-07 12:50] VITALS: BP 124/70
[2017-05-07 15:50] VITALS: BP 108/60
[2017-05-07 16:40] VITALS: BP 108/55
[2017-05-07 17:25] VITALS: BP 109/55
[2017-05-07 18:20] VITALS: BP 114/66
== END 2017-05-07 23:21 | disposition home or self-care (01) ==
LOC: M OPCLI4PV 12:32 → M MSPAV 12:36 → M OPCLI4PV 23:21
PROVIDERS: ATTEND Internal Medicine Medical Oncology
DX: C34.11 Malignant neoplasm of upper lobe, right bronchus or lung (principal); E11.22 Type 2 diabetes mellitus with diabetic chronic kidney disease; E83.42 Hypomagnesemia
CPT/HCPCS: 36430; 83036; 83735; 86850; 86900; 86901; 86920; P9016

== ENCOUNTER → 2017-05-07 | Outpatient (REF) | payer MEDICARE, OTHER | LOC: M LAB REF 13:26 | PROVIDERS: ATTEND Internal Medicine | DX: E11.22 Type 2 diabetes mellitus with diabetic chronic kidney disease (principal); E83.42 Hypomagnesemia ==

== ENCOUNTER → 2017-05-28 | Outpatient (REF) | payer MEDICARE, OTHER ==
[~2017-05-28] MED LIST changes: -ACETAMINOPHEN TAB 650MG DOSE (2X325MG) PO SCH; -diphenhydrAMINE 25 MG CAP PO SCH
== END ==
LOC: M LAB REF 13:12
PROVIDERS: ATTEND Internal Medicine Medical Oncology
DX: C34.90 Malignant neoplasm of unspecified part of unspecified bronchus or lung (principal)